=== PATIENT | female | born 1950 | race African-American/Black ===

== ENCOUNTER 2016-11-22 16:25 | Emergency (ER) | payer MEDICARE, MEDICAID ==
[~2016-11-22] VITALS: Ht 170.2 cm; Wt 96.6 kg
[~2016-11-22 16:25] MED LIST: ACET325T9 PO; ALBU8.5H6 IH; AMIT10TA PO; ASPI-482 PO; ASPI325T4 PO; CARB200C PO; CARB200T PO; CLOP75TA PO; CYCL10TA2 PO; DICY10CA53 PO; ERGO500012 PO; FERR325T72 PO; HYDR-2762 PO; ISOS30TA PO; ISOS30TA4 PO; ISOS60TA PO; Isosorbide Mononitrate PO; LEVO150T PO; LEVO25TA4 PO; LORA10TA55 PO; NITR0.4T6 SL; OMEP40CA5 PO; ONDA8TAB15 PO; OXYC10TA32 PO; OXYC1TAB9 PO; OXYC5TAB PO; Oxycodone Hcl/Acetaminophen PO; PITA1TAB2 PO; POLY17PO5 PO; POTA10CA PO; PREG50CA PO; SENN-22 PO; SUCR1ORA PO; SUCR1TAB PO; TOPI100T39 PO; TRAM50TA PO; TRIA1CAP3 PO; UBID100C12 PO; [UNRECOGNIZED DRUG - CODE] IV; levoxyl PO
[2016-11-22 16:34] VITALS: BP 149/71
[2016-11-22] MEDS ORDERED: HYDR115S2 PO (17:03)
[2016-11-22] MEDS ORDERED: PRED-220 PO (17:03)
--- NOTE | 2016-11-22 17:03 | PHYS DOC ---
Past Medical History Past Medical History: CAD, High Cholesterol, Hypertension, Other Additional Past Medical Histor: fabry's disease Past Surgical History: Appendectomy, Cholecystectomy, Hysterectomy, Other Additional Past Surgical Histo: stent placement x3, bowel resection Alcohol Use: None Drug Use: None Adult General Chief Complaint Chief Complaint: Congestion HPI HPI Patient is a 66 year old female, who is a nonsmoker, presents emergency Department today stating that her "bronchitis" is not getting any better. Patient states that her illness began approximately week and half ago. She saw her primary care doctor who placed her on azithromycin. She completed the last dose today and states that she's had no improvement. She denies any fevers or chills. She denies myalgias or arthralgias. Patient denies any history of cardiac or pulmonary disease. 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 She does not take any autoimmune medications. She denies any known contact with similar symptoms. She denies foreign travel, hospitalization within the past 90 days. Review of Systems Review of Systems Constitutional: Denies fever or chills [] Eyes: Denies change in visual acuity, redness, or eye pain [] HENT: Denies nasal congestion or sore throat [] Respiratory: Denies cough or shortness of breath [] Cardiovascular: No additional information not addressed in HPI [] GI: Denies abdominal pain, nausea, vomiting, bloody stools or diarrhea [] : Denies dysuria or hematuria [] Musculoskeletal: Denies back pain or joint pain [] Integument: Denies rash or skin lesions [] Neurologic: Denies headache, focal weakness or sensory changes [] Endocrine: Denies polyuria or polydipsia [] Allergies Allergies Allergies Coded Allergies Type Severity Reaction Last Updated Verified Penicillins Allergy Intermediate Hives 11/10/16 Yes ubidecarenone Allergy Intermediate Itching 11/10/16 Yes NUBIA Inhibitors Adverse Reaction Intermediate cough and migraine 11/10/16 Yes Wpjqtps-Myw-Wnl Reductase Inhibitor Adverse Reaction Intermediate Liver enzymes elevated 11/10/16 Yes clindamycin Adverse Reaction Intermediate c-Diff Diarrhea 11/10/16 Yes diazepam Adverse Reaction Intermediate AMS 11/10/16 Yes duloxetine Adverse Reaction Intermediate Tremors 11/10/16 Yes ezetimibe Adverse Reaction Intermediate Nausea and Vomiting 11/10/16 Yes propranolol Adverse Reaction Intermediate Headaches 11/10/16 Yes Physical Exam Physical Exam Constitutional: Well developed, well nourished, no acute distress, non-toxic appearance. Patient is afebrile. HENT: Normocephalic, atraumatic, bilateral external ears normal, oropharynx moist, no oral exudates, nose normal. [] Eyes: PERRLA, EOMI, conjunctiva normal, no discharge. [] Neck: Normal range of motion, no tenderness, supple, no stridor. [] Cardiovascular:Heart rate regular rhythm, no murmur Lungs & Thorax: There is no respiratory distress respiratory fatigue. There is no posturing or sensory muscle use. Patient is able to speak in full sentences. Patient has central coarse breath sounds at resonates somewhat bilaterally. Peripheral lung sounds are clear to auscultation. Abdomen: Bowel sounds normal, soft, no tenderness, no masses, no pulsatile masses. [] Skin: Warm, dry, no erythema, no rash. [] Back: No tenderness, no CVA tenderness. [] Extremities: No tenderness, no cyanosis, no clubbing, ROM intact, no edema. [] Neurologic: Alert and oriented X 3, normal motor function, normal sensory function, no focal deficits noted. [] Psychologic: Affect normal, judgement normal, mood normal. [] Current Patient Data Vital Signs Vital Signs Date Time Temp Pulse Resp B/P Pulse Ox O2 Delivery O2 Flow Rate FiO2 11/22/16 16:34 97.9 108 18 149/71 96 Room Air 97.9 EKG EKG [] Radiology/Procedures Radiology/Procedures [] Course & Med Decision Making Course & Med Decision Making Pertinent Labs and Imaging studies reviewed. (See chart for details) [] Dragon Disclaimer Dragon Disclaimer This electronic medical record was generated, in whole or in part, using a voice recognition dictation system. Departure Departure Impression: Primary Impression: Bronchitis Disposition: 01 HOME, SELF-CARE Condition: GOOD Referrals: PONCE MAST MD (PCP) Patient Instructions: Acute Bronchitis, [id number] Additional Instructions: 1.You did not require antibiotics. Take the medications as prescribed. Use your inhaler every 6 hours as needed for wheezing and difficulty breathing. 2. Review the discharge instructions provided for self-care and reasons to return to the emergency department. 3. As discussed, do not combine your pain medication with the cough suppressant prescribed here today. A combination of these 2 can suppress your heart and lung function as well as your mental capacity. 4. Contact your primary care doctor's office the morning to schedule follow-up appointment for reevaluation within a week. Scripts Prednisone 10 Mg [id number] Mg PO UD PREDNISONE TAPER #39 TAB Ref 0 Take 3 tablets by mouth twice a day for 3 days, then take 2 tablets by mouth twice a day for 3 days, then take 1 tablet by mouth twice a day for 3 days, then take 1 tablet by mouth daily x 3 days, then stop. Prov:YANNI CLIFFORD 11/22/16 Hydrocodone/Chlorphen Polis (Tussionex Pennkinetic Susp)480 Ml [place].[id number] Ml PO BID COUGH #120 ML Prov:YANNI CLIFFORD 11/22/16 YANNI CLIFFORD Nov 22, 2016 17:03
== END 2016-11-22 17:22 | disposition home or self-care (01) ==
LOC: ER 16:25
DX: J40 Bronchitis, not specified as acute or chronic (principal); I25.10 Atherosclerotic heart disease of native coronary artery without angina pectoris; I10 Essential (primary) hypertension; E78.00 Pure hypercholesterolemia, unspecified; E75.21 Fabry (-Anderson) disease; Z88.0 Allergy status to penicillin; Z88.4 Allergy status to anesthetic agent; Z88.1 Allergy status to other antibiotic agents; Z88.8 Allergy status to other drugs, medicaments and biological substances; Z95.5 Presence of coronary angioplasty implant and graft
CPT/HCPCS: 99283

== ENCOUNTER 2016-12-27 20:54 | Emergency (ER) | payer MEDICARE, MEDICAID ==
[~2016-12-27 20:54] MED LIST changes: +HYDR115S2 PO; +POLY17PO29 PO; -POLY17PO5 PO; -POTA10CA PO; +POTASSIUM CHLO10 MEQ PO; +PRED-220 PO; -SUCR1ORA PO; +SUCR1ORA11 PO
[2016-12-27 21:12] VITALS: BP 220/100
--- NOTE | 2016-12-27 21:24 | PHYS DOC ---
Past Medical History Past Medical History: CAD, High Cholesterol, Hypertension, Other Additional Past Medical Histor: fabry's disease Past Surgical History: Appendectomy, Cholecystectomy, Hysterectomy, Other Additional Past Surgical Histo: stent placement x3, bowel resection Alcohol Use: None Drug Use: None Adult General Chief Complaint Chief Complaint: PAIN CONTROL HPI HPI Patient is a 66 year old female with a history of hypertension, high cholesterol, Fabry's disease who presents today with exacerbation of chronic pain due to Fabry's disease patient states she is in the middle of moving and this exacerbated her pain. Review of Systems Review of Systems Constitutional: Denies fever or chills [] Eyes: Denies change in visual acuity, redness, or eye pain [] HENT: Denies nasal congestion or sore throat [] Respiratory: Denies cough or shortness of breath [] Cardiovascular: No additional information not addressed in HPI [] GI: Denies abdominal pain, nausea, vomiting, bloody stools or diarrhea [] : Denies dysuria or hematuria [] Musculoskeletal: Generalized pain Integument: Denies rash or skin lesions [] Neurologic: Denies headache, focal weakness or sensory changes [] Endocrine: Denies polyuria or polydipsia [] Current Medications Current Medications Current Medications Medications (Trade) Dose Ordered Sig/Priya Start Time Stop Time Status Last Admin Dose Admin Morphine Sulfate 10 mg 1X ONCE 12/27/16 21:15 12/27/16 21:16 UNV Ondansetron HCl (Zofran Odt) 4 mg 1X ONCE 12/27/16 21:30 12/27/16 21:31 Allergies Allergies Allergies Coded Allergies Type Severity Reaction Last Updated Verified Penicillins Allergy Intermediate Hives 12/22/16 Yes ubidecarenone Allergy Intermediate Itching 12/22/16 Yes NUBIA Inhibitors Adverse Reaction Intermediate cough and migraine 12/22/16 Yes Gmlnogf-Xiv-Ygn Reductase Inhibitor Adverse Reaction Intermediate Liver enzymes elevated 12/22/16 Yes clindamycin Adverse Reaction Intermediate c-Diff Diarrhea 12/22/16 Yes diazepam Adverse Reaction Intermediate AMS 12/22/16 Yes duloxetine Adverse Reaction Intermediate Tremors 12/22/16 Yes ezetimibe Adverse Reaction Intermediate Nausea and Vomiting 12/22/16 Yes propranolol Adverse Reaction Intermediate Headaches 12/22/16 Yes Physical Exam Physical Exam Constitutional: Well developed, well nourished, no acute distress, non-toxic appearance. [] HENT: Normocephalic, atraumatic, bilateral external ears normal, oropharynx moist, no oral exudates, nose normal. [] Eyes: PERRLA, EOMI, conjunctiva normal, no discharge. [] Neck: Normal range of motion, no tenderness, supple, no stridor. [] Cardiovascular:Heart rate regular rhythm, no murmur [] Lungs & Thorax: Bilateral breath sounds clear to auscultation [] Abdomen: Bowel sounds normal, soft, no tenderness, no masses, no pulsatile masses. [] Skin: Warm, dry, no erythema, no rash. [] Back: No tenderness, no CVA tenderness. [] Extremities: No tenderness, no cyanosis, no clubbing, ROM intact, no edema. [] Neurologic: Alert and oriented X 3, normal motor function, normal sensory function, no focal deficits noted. [] Psychologic: Affect normal, judgement normal, mood normal. [] Current Patient Data Vital Signs Vital Signs Date Time Temp Pulse Resp B/P Pulse Ox O2 Delivery O2 Flow Rate FiO2 12/27/16 21:12 98.0 75 22 96 Room Air 98.0 EKG EKG [] Radiology/Procedures Radiology/Procedures [] Course & Med Decision Making Course & Med Decision Making Pertinent Labs and Imaging studies reviewed. (See chart for details) Patient is in the ED with exacerbation of Fabry's disease pain. She was given morphine subcutaneous and Zofran. Discharged with instructions to follow-up with her own PCP. Dragon Disclaimer Dragon Disclaimer This electronic medical record was generated, in whole or in part, using a voice recognition dictation system. Departure Departure Impression: Primary Impression: Fabry disease Additional Impression: Chronic pain Disposition: 01 HOME, SELF-CARE Condition: STABLE Referrals: PONCE MAST MD (PCP) Follow-up with your doctor in a week Patient Instructions: Musculoskeletal Pain Additional Instructions: You were seen for exacerbation of Fabry's disease pain. Please follow-up with your own doctor in one week or sooner if need be. Problem Qualifiers Additional Impression: Chronic pain Chronic pain type: chronic pain syndrome Qualified Code: G89.4 - Chronic pain syndrome JUAN GRULLON VICENTE December 27, 2016 21:24
[2016-12-27] MEDS ORDERED: ONDANSETRON ODT 4 MG TAB.RAPDIS. PO ONE (21:30)
[2016-12-27] MEDS ORDERED: MORPHINE SULFATE 10 MG/ML VIAL. SQ ONE (21:30)
[2016-12-27] MEDS ORDERED: MORPHINE SULFATE 10 MG/ML VIAL. IM ONE (21:30)
== END 2016-12-27 21:39 | disposition home or self-care (01) ==
LOC: ER 20:54
DX: E75.21 Fabry (-Anderson) disease (principal); G89.29 Other chronic pain; I10 Essential (primary) hypertension; E78.00 Pure hypercholesterolemia, unspecified; I25.10 Atherosclerotic heart disease of native coronary artery without angina pectoris; Z95.5 Presence of coronary angioplasty implant and graft; Z88.1 Allergy status to other antibiotic agents; Z88.8 Allergy status to other drugs, medicaments and biological substances; Z88.0 Allergy status to penicillin
CPT/HCPCS: 96372; 99283; J2270; Q0162

== ENCOUNTER 2017-03-24 13:47 | Emergency (ER) | payer MEDICARE ==
[~2017-03-24] VITALS: Ht 170.2 cm; Wt 96.6 kg
[~2017-03-24 13:47] MED LIST changes: -ASPI325T4 PO; +ASPI325T8 PO; -ERGO500012 PO; +ERGO500027 PO; +NITR0.4T22 SL; -NITR0.4T6 SL; -OXYC10TA32 PO; +OXYC10TA45 PO; -TOPI100T39 PO; +TOPI100T42 PO; -UBID100C12 PO; +UBID100C40 PO
[2017-03-24 13:52] VITALS: BP 138/65
--- NOTE | 2017-03-24 14:17 | PHYS DOC ---
Past Medical History Past Medical History: CAD, High Cholesterol, Hypertension, Other Additional Past Medical Histor: fabry's disease Past Surgical History: Angioplasty, Appendectomy, Cholecystectomy, Colectomy, Hysterectomy Additional Past Surgical Histo: stent placement x3, bowel resection Alcohol Use: None Drug Use: None Adult General Chief Complaint Chief Complaint: PAIN CONTROL HPI HPI Patient is a 66 year old female presents to the emergency department stating she had Fabrys and is having a crisis. VS are within normal limits. Patient states, I have to have morphine 10 cc injection this is the only thing that breaks the cycle." Patient continues to state she has ER morphine 15 mg at home in which she has taken last night. She states she can take the medication every 12 hour but did not take the medication today as she has to work. She did however take oxycodone 10 this morning prior to going to work. Patient states she was at work when she noted that her lips felt numb as it does when she has her crisis. Patient states, " I always get morphine injections because my morphine at home does not take care of the pain when it gets this bad." Review of Systems Review of Systems Constitutional: Denies fever or chills. C/o generalized body pain Eyes: Denies change in visual acuity, redness, or eye pain [] HENT: Denies nasal congestion or sore throat [] Respiratory: Denies cough or shortness of breath [] Cardiovascular: No additional information not addressed in HPI [] GI: Denies abdominal pain, nausea, vomiting, bloody stools or diarrhea [] : Denies dysuria or hematuria [] Musculoskeletal: Denies back pain or joint pain [] Integument: Denies rash or skin lesions [] Neurologic: Denies headache, focal weakness or sensory changes [] Endocrine: Denies polyuria or polydipsia [] Allergies Allergies Allergies Coded Allergies Type Severity Reaction Last Updated Verified Penicillins Allergy Intermediate Hives 03/20/17 Yes ubidecarenone Allergy Intermediate Itching 03/20/17 Yes NUBIA Inhibitors Adverse Reaction Intermediate cough and migraine 03/20/17 Yes Bmlrasq-Jbw-Ptn Reductase Inhibitor Adverse Reaction Intermediate Liver enzymes elevated 03/20/17 Yes clindamycin Adverse Reaction Intermediate c-Diff Diarrhea 03/20/17 Yes diazepam Adverse Reaction Intermediate AMS 03/20/17 Yes duloxetine Adverse Reaction Intermediate Tremors 03/20/17 Yes ezetimibe Adverse Reaction Intermediate Nausea and Vomiting 03/20/17 Yes propranolol Adverse Reaction Intermediate Headaches 03/20/17 Yes Physical Exam Physical Exam Constitutional: Well developed, well nourished, no acute distress, non-toxic appearance. [] HENT: Normocephalic, atraumatic, bilateral external ears normal, oropharynx moist, no oral exudates, nose normal. [] Eyes: PERRLA, EOMI, conjunctiva normal, no discharge. [] Neck: Normal range of motion, no tenderness, supple, no stridor. [] Cardiovascular: Patient pink in color Lungs & Thorax: no respiratory distress noted Skin: Warm, dry, no erythema, no rash. [] Back: No tenderness] Extremities: No tenderness, no cyanosis, no clubbing, ROM intact, no edema. [] Neurologic: Alert and oriented X 3, normal motor function, normal sensory function, no focal deficits noted. [] Psychologic: Affect normal, judgement normal, mood normal. [] Current Patient Data Vital Signs Vital Signs Date Time Temp Pulse Resp B/P (MAP) Pulse Ox O2 Delivery O2 Flow Rate FiO2 03/24/17 13:52 97.7 63 16 96 Room Air 97.7 EKG EKG [] Radiology/Procedures Radiology/Procedures [] Course & Med Decision Making Course & Med Decision Making Pertinent Labs and Imaging studies reviewed. (See chart for details) Once again patients VS normal. Patient became upset when she was instructed that she would need a ride here before she would be provided with morphine. Patient became argumentative stating that she has always received the injection and then would call for a ride. 1416 Patient has made multiple calls and is having difficulty finding someone to come pick her up. 1516 Patients ride has arrived here. Medications have been ordered, morphine 10 mg SC and Zofran 4 mg ODT. Patient was provided with discharge instructions. Recommended not taking her home medications for 6 hours since she received the injection here in the emergency department. Signs and symptoms to return to the emergency department has been provided. Patient will be discharged home in stable condition. [] Dragon Disclaimer Dragon Disclaimer This electronic medical record was generated, in whole or in part, using a voice recognition dictation system. Departure Departure Impression: Primary Impression: Chronic pain Additional Impression: Drug-seeking behavior Disposition: HOME, SELF-CARE Condition: STABLE Referrals: PONCE MAST MD (PCP) Patient Instructions: Chronic Pain Management-Brief Additional Instructions: Activity as tolerated Take your home medication as prescribed. To help prevent increase pain. You may take your morphine ER or your oxycodone in 6 hours if needed for pain No driving while taking Morphine ER or Oxycodone as these cause drowsiness Followup with your primary care provider for further pain management Return to emergency department as needed for signs and symptoms that become worse. Problem Qualifiers LYNETTE STAPLES KILN TENDER Mar 24, 2017 14:17
[2017-03-24] MEDS ORDERED: MORPHINE SULFATE 10 MG/ML VIAL. SQ ONE (15:15)
[2017-03-24] MEDS ORDERED: ONDANSETRON ODT 4 MG TAB.RAPDIS. PO ONE (15:15)
== END 2017-03-24 15:34 | disposition home or self-care (01) ==
LOC: ER 13:47
DX: G89.29 Other chronic pain (principal); Z76.5 Malingerer [conscious simulation]; R20.0 Anesthesia of skin; E78.00 Pure hypercholesterolemia, unspecified; I10 Essential (primary) hypertension; I25.10 Atherosclerotic heart disease of native coronary artery without angina pectoris; Z88.0 Allergy status to penicillin; Z88.1 Allergy status to other antibiotic agents; Z88.8 Allergy status to other drugs, medicaments and biological substances
CPT/HCPCS: 96372; 99283; J2270; Q0162

== ENCOUNTER → 2017-06-19 | Outpatient (CLI) | payer MEDICARE ==
[2017-06-08 12:52] VITALS: BP 150/57
[~2017-06-19] MED LIST changes: -OXYC5TAB PO; +OXYC5TAB95 PO
--- NOTE | 2017-06-20 15:58 | KCIC ---
DATE: 06/19/2017 EXAM: MAMMO GAUTAM SCREENING BILATERAL HISTORY: Asymptomatic screening mammogram COMPARISON: Prior mammograms from 04/12/2016 This study was interpreted with the benefit of Computerized Aided Detection (CAD). The breast parenchyma is primarily fatty replaced. Breast parenchyma level density A. FINDINGS: Bilateral CC and MLO views of the breasts were performed. Bilateral breast tomosynthesis was performed in CC and MLO projections. Right breast: There are no suspicious microcalcifications, masses or areas of architectural distortion. Left breast: There are no suspicious microcalcifications, masses or areas of architectural distortion. Findings are stable from prior mammogram. IMPRESSION: Negative bilateral mammogram. Recommend annual screening mammography. BI-RADS CATEGORY: 1 NEGATIVE RECOMMENDED FOLLOW-UP: 12M 12 MONTH FOLLOW-UP PQRS compliance statement: Patient information was entered into a reminder system with a target due date 06/19/2018 for the next mammogram. Mammography is a sensitive method for finding small breast cancers, but it does not detect them all and is not a substitute for careful clinical examination. A negative mammogram does not negate a clinically suspicious finding and should not result in delay in biopsying a clinically suspicious abnormality. "Our facility is accredited by the [employer] Mammography Program."
== END | disposition home or self-care (01) ==
LOC: KCIC MAMMO 12:34
PROVIDERS: ATTEND Internal Medicine
DX: Z12.31 Encounter for screening mammogram for malignant neoplasm of breast (principal)
CPT/HCPCS: 77063; G0202; 77067

== ENCOUNTER 2017-07-13 12:27 | Emergency (ER) | payer MEDICARE ==
[~2017-07-13] VITALS: Ht 170.2 cm; Wt 90.7 kg
[2017-07-13 12:50] VITALS: BP 140/70
[2017-07-13] MEDS ORDERED: MORPHINE SULFATE 10 MG/ML VIAL. SQ ONE (13:45)
--- NOTE | 2017-07-13 13:56 | PHYS DOC ---
Past Medical History Past Medical History: CAD, High Cholesterol, Hypertension, Other Additional Past Medical Histor: fabry's disease Past Surgical History: Angioplasty, Appendectomy, Cholecystectomy, Colectomy, Hysterectomy Additional Past Surgical Histo: stent placement x3, bowel resection Alcohol Use: None Drug Use: None Adult General Chief Complaint Chief Complaint: PAIN CONTROL HPI HPI This patient is a pleasant 67-year-old female with history of Fabry's disease who is receiving intermittent enzyme replacement therapy presents with her typical pain crisis. Patient been dealing with pain in her thighs and her elbows bilaterally for last week she returned use her medications prescribed at home by Dr. Rendon with limited success. She comes in today because typically when she begins having tingling to her face she knows that the symptoms will be worse and the patient will not be controlled without worse significant medications. Patient has no new symptoms, no fevers no chills no nausea no vomiting no chest pain or shortness of breath or other symptoms chest pain. There is no rash no change in skin color no swelling no trauma. Patient is typical for patient a 10 of 10 at this time Review of Systems Review of Systems Constitutional: Denies fever or chills [] Eyes: Denies change in visual acuity, redness, or eye pain [] HENT: Denies nasal congestion or sore throat [] Respiratory: Denies cough or shortness of breath [] Cardiovascular: No additional information not addressed in HPI [] GI: Denies abdominal pain, nausea, vomiting, bloody stools or diarrhea [] : Denies dysuria or hematuria [] Musculoskeletal: He has chronic joint lower leg arm and thigh pain typical for patient Integument: Denies rash or skin lesions [] Neurologic: Denies headache, focal weakness or sensory changes [] All other systems were reviewed and found to be within normal limits, except as documented in this note. Current Medications Current Medications Current Medications Medications (Trade) Dose Ordered Sig/Priya Start Time Stop Time Status Last Admin Dose Admin Morphine Sulfate 10 mg 1X ONCE 07/13/17 13:45 07/13/17 13:46 DC Allergies Allergies Allergies Coded Allergies Type Severity Reaction Last Updated Verified Penicillins Allergy Intermediate Hives 07/06/17 Yes ubidecarenone Allergy Intermediate Itching 07/06/17 Yes NUBIA Inhibitors Adverse Reaction Intermediate cough and migraine 07/06/17 Yes Bfzgklr-Lvs-Lri Reductase Inhibitor Adverse Reaction Intermediate Liver enzymes elevated 07/06/17 Yes clindamycin Adverse Reaction Intermediate c-Diff Diarrhea 07/06/17 Yes diazepam Adverse Reaction Intermediate AMS 07/06/17 Yes duloxetine Adverse Reaction Intermediate Tremors 07/06/17 Yes ezetimibe Adverse Reaction Intermediate Nausea and Vomiting 07/06/17 Yes propranolol Adverse Reaction Intermediate Headaches 07/06/17 Yes Physical Exam Physical Exam Vital signs recorded the chart without a blood pressure within normal limits Constitutional: Well developed, well nourished, no acute distress, non-toxic appearance. [] Neck: Normal range of motion, no tenderness, supple, Cardiovascular:Heart rate regular rhythm, no murmur [] Lungs & Thorax: Bilateral breath sounds clear to auscultation [] Skin: Warm, dry, no erythema, no rash. [] Back: No tenderness, no CVA tenderness. [] Extremities: She has extensive tenderness along the thighs bilaterally and rales bilaterally. No change in skin color no warmth or swelling. This is typical for patient nothing new Neurologic: Alert and oriented X 3, normal motor function, normal sensory function, no focal deficits noted. [] Psychologic: Affect normal, judgement normal, mood normal. [] Current Patient Data Vital Signs Vital Signs Date Time Temp Pulse Resp B/P (MAP) Pulse Ox O2 Delivery O2 Flow Rate FiO2 07/13/17 12:50 97.8 66 16 96 Room Air 97.8 EKG EKG [] Radiology/Procedures Radiology/Procedures [] Course & Med Decision Making Course & Med Decision Making Pertinent Labs and Imaging studies reviewed. (See chart for details) []Farm Service Consultant note: Dr. Mitesh Collins Farm Service Consultant called at of the service initially paged service at 1:45 PM Consult called back at 1:45 PM Discussed the case I presented and they agreed with treatment plan and disposition. He understands this patient has a long-standing history of her brace disease which is painful nature any doctors for her complaint and states that she does need her subcutaneous morphine to treat her symptoms. Dragon Disclaimer Dragon Disclaimer This electronic medical record was generated, in whole or in part, using a voice recognition dictation system. Departure Departure Impression: Primary Impression: Fabry disease Additional Impression: Exacerbation of chronic back pain Disposition: 01 HOME, SELF-CARE Condition: STABLE Referrals: MITESH COLLINS MD (PCP) Patient Instructions: Chronic Pain Management Additional Instructions: discharge: I've spoken with the patient and/or caregivers. I've explained the patient's condition, diagnosis and treatment plan based on information available to me at this time. I've answered the patient's and/or caregivers questions and addressed any concerns. The patient and/or caregivers have a good understanding the patient's diagnosis, condition and treatment plan as can be expected at this point. Vital signs have been stabilized. The patient's condition is stable for discharge from the emergency department. The patient will pursue further outpatient evaluation with her primary care provider or other designated consulting physician as outlined in the discharge instructions. Patient and/or caregivers are agreeable to this plan of care and follow-up instructions have been explained in detail. The patient and/or caregivers have received these instructions in written format and expressed understanding of these discharge instructions. The patient and her caregivers are aware that if any significant change in condition or worsening of symptoms should prompt him to immediately return to this of the closest emergency department. If an emergent department is not readily available I would encourage him to call 911. Problem Qualifiers ALISA PEDRO MD Jul 13, 2017 13:56
[2017-07-13] MEDS ORDERED: ONDANSETRON ODT 4 MG TAB.RAPDIS. PO ONE (14:00)
== END 2017-07-13 14:11 | disposition home or self-care (01) ==
LOC: ER 12:27
DX: E75.21 Fabry (-Anderson) disease (principal); G89.29 Other chronic pain; I10 Essential (primary) hypertension; E78.00 Pure hypercholesterolemia, unspecified; I25.10 Atherosclerotic heart disease of native coronary artery without angina pectoris; Z90.710 Acquired absence of both cervix and uterus; Z90.49 Acquired absence of other specified parts of digestive tract; Z95.5 Presence of coronary angioplasty implant and graft; Z88.0 Allergy status to penicillin; Z88.1 Allergy status to other antibiotic agents; Z91.041 Radiographic dye allergy status; Z88.8 Allergy status to other drugs, medicaments and biological substances
CPT/HCPCS: 96372; 99283; J2270; Q0162

== ENCOUNTER → 2017-10-13 | Outpatient (CLI) | payer MEDICARE | END | disposition home or self-care (01) | LOC: ECHO 13:12 | DX: I08.1 Rheumatic disorders of both mitral and tricuspid valves (principal); I25.10 Atherosclerotic heart disease of native coronary artery without angina pectoris | CPT/HCPCS: 93306; 93925 ==

== ENCOUNTER 2017-11-17 06:39 | Outpatient (CLI) | payer MEDICARE ==
[2017-11-17 07:05] LABS: HEMATOCRIT 31.7 % (36.0-47.0); HEMOGLOBIN 9.8 g/dL (12.0-15.5); MEAN CORPUSCULAR HEMOGLOBIN 22 pg (25-35); MEAN CORPUSCULAR HGB CONC 31 g/dL (31-37); MEAN CORPUSCULAR VOLUME 70 fL (79-100); PLATELET COUNT 255 x10^3/uL (140-400); RED BLOOD COUNT 4.52 x10^6/uL (3.50-5.40); RED CELL DISTRIBUTION WIDTH 18.3 % (11.5-14.5); WHITE BLOOD COUNT 7.1 x10^3/uL (4.0-11.0)
[2017-11-17] MEDS ORDERED: IODIXANOL 320 MG/ML 100 ML VIAL. (07:08)
[2017-11-17] MEDS ORDERED: LIDOCAINE 2% 20 ML VIAL. (07:08)
[2017-11-17 07:14] LABS: PROTHROMBIN TIME PATIENT 12.3 SEC (11.7-14.0)
[2017-11-17 07:19] LABS: ANION GAP 12 (6-14); BLOOD UREA NITROGEN 21 mg/dL (7-20); CALCIUM 9.3 mg/dL (8.5-10.1); CARBON DIOXIDE 25 mmol/L (21-32); CHLORIDE 104 mmol/L (98-107); GFR 67.3; GLUCOSE 148 mg/dL (70-99); POTASSIUM 3.4 mmol/L (3.5-5.1); SODIUM 141 mmol/L (136-145)
[2017-11-17] MEDS ORDERED: MIDAZOLAM HCL/PF 5 MG/5 ML VIAL. (07:58)
[2017-11-17] MEDS ORDERED: fentaNYL PF VIAL 100 MCG/2 ML VIAL (07:58)
[2017-11-17] MEDS: LIDOCAINE 2% 20 ML VIAL. IJ (09:10)
[2017-11-17] MEDS: MIDAZOLAM HCL/PF 5 MG/5 ML VIAL. IV (09:11)
[2017-11-17] MEDS: fentaNYL PF VIAL 100 MCG/2 ML VIAL IV (09:11)
[2017-11-17] MEDS: IODIXANOL 320 MG/ML 100 ML VIAL. IART (09:12)
[2017-11-17] MEDS ORDERED: IV 1/2 NORMAL SALINE 1,000 ML IV (09:16)
[2017-11-17] MEDS ORDERED: LACTULOSE 20 GM/30 ML SOLUTION. PO (09:30)
[2017-11-17] MEDS ORDERED: NITROGLYCERIN SUBLINGUAL 0.4 MG BOTTLE OF 25. SL (09:30)
[2017-11-17] MEDS ORDERED: BISACODYL 10 MG SUPP.RECT. PR (09:30)
[2017-11-17] MEDS ORDERED: MAGNESIUM HYDROXIDE 2,400 MG/30 ML ORAL.SUSP. PO (09:30)
[2017-11-17] MEDS ORDERED: ACETAMINOPHEN 325 MG TABLET. PO (09:30)
[2017-11-17] MEDS ORDERED: CILOSTAZOL 50 MG TABLET. PO (21:00)
== END 2017-11-17 11:30 | disposition home or self-care (01) ==
LOC: CCL 06:39
DX: I70.213 Atherosclerosis of native arteries of extremities with intermittent claudication, bilateral legs (principal); I10 Essential (primary) hypertension; I25.10 Atherosclerotic heart disease of native coronary artery without angina pectoris; E78.00 Pure hypercholesterolemia, unspecified; J45.909 Unspecified asthma, uncomplicated; K21.9 Gastro-esophageal reflux disease without esophagitis; E03.9 Hypothyroidism, unspecified; F32.89 Other specified depressive episodes; Z90.49 Acquired absence of other specified parts of digestive tract; Z90.710 Acquired absence of both cervix and uterus; Z79.899 Other long term (current) drug therapy; Z95.5 Presence of coronary angioplasty implant and graft; Z79.82 Long term (current) use of aspirin; Z79.891 Long term (current) use of opiate analgesic; Z98.890 Other specified postprocedural states
CPT/HCPCS: 36247; 36415; 75630; 75716; 80048; 85027; 85610; 99152; 99153; C1769; C1771; C1892; G0269; J1644; J2250; J3010

== ENCOUNTER → 2017-12-26 | Day surgery (SDC) | payer MEDICARE ==
[~2017-12-26] MED LIST changes: -ACET325T9 PO; -ALBU8.5H6 IH; -AMIT10TA PO; -ASPI-482 PO; -ASPI325T8 PO; -CARB200C PO; -CARB200T PO; -CLOP75TA PO; -CYCL10TA2 PO; -DICY10CA53 PO; -ERGO500027 PO; -FERR325T72 PO; -HYDR-2762 PO; -HYDR115S2 PO; -ISOS30TA PO; -ISOS30TA4 PO; -ISOS60TA PO; -Isosorbide Mononitrate PO; -LEVO150T PO; -LEVO25TA4 PO; +LIDOCAINE 1% PF 2 ML VIAL. ID; +LIDOCAINE 2% PF Vial for OR 5 ML VIAL.; -LORA10TA55 PO; +MORPHINE SULFATE 4 MG/ML DISP.SYRIN. IV; -NITR0.4T22 SL; -OMEP40CA5 PO; -ONDA8TAB15 PO; +ONDANSETRON PF 4 MG/2 ML VIAL. IV; -OXYC10TA45 PO; -OXYC1TAB9 PO; -OXYC5TAB95 PO; -Oxycodone Hcl/Acetaminophen PO; -PITA1TAB2 PO; -POLY17PO29 PO; -POTASSIUM CHLO10 MEQ PO; -PRED-220 PO; -PREG50CA PO; +PROCHLORPERAZINE 10 MG/2 ML VIAL. IV; +PROPOFOL 20 ML IV; +PROPOFOL 40 ML IV; -SENN-22 PO; -SUCR1ORA11 PO; -SUCR1TAB PO; -TOPI100T42 PO; -TRAM50TA PO; -TRIA1CAP3 PO; -UBID100C40 PO; -[UNRECOGNIZED DRUG - CODE] IV; +fentaNYL PF VIAL 100 MCG/2 ML VIAL IV; -levoxyl PO
[2017-12-26] MEDS: IV RINGERS,LACTATED 1000ML 1,000 ML IV (08:23)
== END ==
LOC: ENDOS 07:54
DX: Z12.11 Encounter for screening for malignant neoplasm of colon (principal); K21.0 Gastro-esophageal reflux disease with esophagitis; K22.8 Other specified diseases of esophagus; D64.9 Anemia, unspecified; E03.9 Hypothyroidism, unspecified; I73.9 Peripheral vascular disease, unspecified; E66.9 Obesity, unspecified; E78.00 Pure hypercholesterolemia, unspecified; I10 Essential (primary) hypertension; I25.10 Atherosclerotic heart disease of native coronary artery without angina pectoris; M19.90 Unspecified osteoarthritis, unspecified site; Z90.49 Acquired absence of other specified parts of digestive tract; Z98.51 Tubal ligation status; Z90.710 Acquired absence of both cervix and uterus; Z98.890 Other specified postprocedural states; Z87.19 Personal history of other diseases of the digestive system; Z79.899 Other long term (current) drug therapy; Z79.82 Long term (current) use of aspirin
CPT/HCPCS: 43239; 45378; 88305; G0105; J2704

== ENCOUNTER 2018-03-26 16:41 | Emergency (ER) | payer MEDICARE ==
[2018-03-26] MEDS: MORPHINE SULFATE 10 MG/ML VIAL. SQ (17:29)
[2018-03-26] MEDS: ONDANSETRON ODT 4 MG TAB.RAPDIS. PO (17:37)
== END 2018-03-26 17:43 | disposition home or self-care (01) ==
LOC: ER 16:41
DX: E75.21 Fabry (-Anderson) disease (principal); G89.29 Other chronic pain; I10 Essential (primary) hypertension; E78.00 Pure hypercholesterolemia, unspecified; I25.10 Atherosclerotic heart disease of native coronary artery without angina pectoris; Z94.9 Transplanted organ and tissue status, unspecified; Z90.710 Acquired absence of both cervix and uterus; Z90.89 Acquired absence of other organs; Z87.891 Personal history of nicotine dependence; Z88.1 Allergy status to other antibiotic agents; Z88.0 Allergy status to penicillin; Z88.8 Allergy status to other drugs, medicaments and biological substances
CPT/HCPCS: 96372; 99283; J2270; Q0162

== ENCOUNTER 2018-05-19 17:16 | Emergency (ER) | payer MEDICARE ==
[~2018-05-19] VITALS: Ht 175.3 cm; Wt 96.6 kg
[~2018-05-19 17:16] MED LIST changes: +ACET325T9 PO; +ALBU8.5H6 IH; +AMIT10TA PO; +AMLO5TAB7 PO; +ASPI-482 PO; +ASPI325T8 PO; +CARB200C PO; +CARB200T PO; +CILO100T PO; +CLOP75TA PO; +CYCL10TA2 PO; +DICY10CA53 PO; +ERGO500027 PO; +FERR325T72 PO; +HYDR-2762 PO; +HYDR-2766 PO; +HYDR115S2 PO; +ISOS30TA PO; +ISOS30TA4 PO; +ISOS60TA PO; +Isosorbide Mononitrate PO; +LEVO150T PO; +LEVO25TA4 PO; -LIDOCAINE 1% PF 2 ML VIAL. ID; -LIDOCAINE 2% PF Vial for OR 5 ML VIAL.; +LORA10TA55 PO; -MORPHINE SULFATE 4 MG/ML DISP.SYRIN. IV; +NITR0.4T22 SL; +OMEP40CA5 PO; +ONDA8TAB15 PO; -ONDANSETRON PF 4 MG/2 ML VIAL. IV; +OXYC-411 PO; +OXYC10TA45 PO; +OXYC5TAB95 PO; +Oxycodone Hcl/Acetaminophen PO; +PITA1TAB2 PO; +POLY17PO29 PO; +POTA10TA12 PO; +POTA20TA82 PO; +PRED-220 PO; +PREG50CA PO; -PROCHLORPERAZINE 10 MG/2 ML VIAL. IV; -PROPOFOL 20 ML IV; -PROPOFOL 40 ML IV; +SENN-22 PO; +SUCR1ORA11 PO; +SUCR1TAB PO; +TIZA4TAB PO; +TOPI100T42 PO; +TRAM50TA PO; +TRIA1CAP3 PO; +UBID100C40 PO; +[UNRECOGNIZED DRUG - CODE] IV; -fentaNYL PF VIAL 100 MCG/2 ML VIAL IV; +levoxyl PO
[2018-05-19 17:22] VITALS: BP 148/99
[2018-05-19] MEDS ORDERED: ONDANSETRON ODT 4 MG TAB.RAPDIS. PO ONE (17:30)
[2018-05-19] MEDS ORDERED: MORPHINE SULFATE 10 MG/ML VIAL. SQ ONE (17:30)
--- NOTE | 2018-05-19 17:33 | PHYS DOC ---
Past Medical History Past Medical History: CAD, High Cholesterol, Hypertension, Other Additional Past Medical Histor: fabry's disease Past Surgical History: Angioplasty, Appendectomy, Cholecystectomy, Colectomy, Hysterectomy Additional Past Surgical Histo: stent placement x3, bowel resection Alcohol Use: None Drug Use: None Adult General Chief Complaint Chief Complaint: OTHER COMPLAINTS HPI HPI Patient is a 68 year old female who presents with a Fabry pain crisis. The patient was just at a conference in [place]. She thinks that she overdid it. She came back in town yesterday and spent all day in bed and took her pain medications. She has tried increasing her fluids. She states that today her pain has continued to worsen. When she gets into a crisis like this she needs morphine subcutaneous and Zofran to alleviate her symptoms. She states that she is not having any other irregular symptoms other than her normal pain crisis. Review of Systems Review of Systems Constitutional: Denies fever or chills [] Eyes: Denies change in visual acuity, redness, or eye pain [] HENT: Denies nasal congestion or sore throat [] Respiratory: Denies cough or shortness of breath [] Cardiovascular: No additional information not addressed in HPI [] GI: Denies abdominal pain, nausea, vomiting, bloody stools or diarrhea [] : Denies dysuria or hematuria [] Musculoskeletal: See history of present illness Integument: Denies rash or skin lesions [] Neurologic: Denies headache, focal weakness or sensory changes [] Endocrine: Denies polyuria or polydipsia [] All other systems were reviewed and found to be within normal limits, except as documented in this note. Current Medications Current Medications Current Medications Medications (Trade) Dose Ordered Sig/Priya Start Time Stop Time Status Last Admin Dose Admin Morphine Sulfate (Morphine Sulfate) 10 mg 1X ONCE 05/19/18 17:30 05/19/18 17:31 UNV Ondansetron HCl (Zofran Odt) 4 mg 1X ONCE 05/19/18 17:30 05/19/18 17:31 UNV Allergies Allergies Allergies Coded Allergies Type Severity Reaction Last Updated Verified Penicillins Allergy Intermediate Hives 05/10/18 Yes enalapril Allergy Intermediate cough 05/10/18 Yes fentanyl Allergy Intermediate headaches 05/10/18 Yes lisinopril Allergy Intermediate 05/10/18 Yes pravastatin Allergy Intermediate 05/10/18 Yes ubidecarenone Allergy Intermediate Itching 05/10/18 Yes NUBIA Inhibitors Adverse Reaction Intermediate cough and migraine 05/10/18 Yes Irsqwkp-Eyj-Mfz Reductase Inhibitor Adverse Reaction Intermediate Liver enzymes elevated 05/10/18 Yes clindamycin Adverse Reaction Intermediate c-Diff Diarrhea 05/10/18 Yes diazepam Adverse Reaction Intermediate AMS 05/10/18 Yes duloxetine Adverse Reaction Intermediate Tremors 05/10/18 Yes ezetimibe Adverse Reaction Intermediate Nausea and Vomiting 05/10/18 Yes propranolol Adverse Reaction Intermediate Headaches 05/10/18 Yes Physical Exam Physical Exam Constitutional: Well developed, well nourished, no acute distress, non-toxic appearance. [] HENT: Normocephalic, atraumatic, bilateral external ears normal, oropharynx moist, no oral exudates, nose normal. [] Eyes: PERRLA, EOMI, conjunctiva normal, no discharge. [] Neck: Normal range of motion, no tenderness, supple, no stridor. [] Cardiovascular:Heart rate regular rhythm, no murmur [] Lungs & Thorax: Bilateral breath sounds clear to auscultation [] Abdomen: Bowel sounds normal, soft, no tenderness, no masses, no pulsatile masses. [] Skin: Warm, dry, no erythema, no rash. [] Back: No tenderness, no CVA tenderness. [] Extremities: Generalized tenderness, no cyanosis, no clubbing, ROM intact, no edema. [] Neurologic: Alert and oriented X 3, normal motor function, normal sensory function, no focal deficits noted. [] Psychologic: Affect normal, judgement normal, mood normal. [] EKG EKG [] Radiology/Procedures Radiology/Procedures [] Course & Med Decision Making Course & Med Decision Making Pertinent Labs and Imaging studies reviewed. (See chart for details) []The patient is receiving 10 of morphine subcutaneous as well as 4 mg of Zofran in the emergency department. She will follow up with her primary care for further evaluation. She is in agreement with this plan. Dragon Disclaimer Dragon Disclaimer This electronic medical record was generated, in whole or in part, using a voice recognition dictation system. Departure Departure Impression: Primary Impression: Fabry disease Additional Impression: Pain Disposition: 01 HOME, SELF-CARE Condition: STABLE Referrals: PONCE MAST MD (PCP) Patient Instructions: Chronic Pain Additional Instructions: Increase your fluids and rest. Follow-up with your primary care provider for further evaluation of your symptoms. If worsening return to the emergency department. Do not drive or operate heavy machinery with the medications you were given in the emergency room today for at least 12 hours. Problem Qualifiers MEGA MUNSON APRN May 19, 2018 17:33
[2018-05-24] MEDS ORDERED: CHOL10002 PO (11:05)
[2018-05-24] MEDS ORDERED: LEVO137T2 PO (11:05)
[2018-05-24] MEDS ORDERED: TIZA4TAB PO (11:05)
[2018-05-24] MEDS ORDERED: ISOS30TA4 PO (11:05)
[2018-05-24] MEDS ORDERED: POTA20TA4 PO (11:05)
== END 2018-05-19 18:13 | disposition home or self-care (01) ==
LOC: ER 17:16
DX: E75.21 Fabry (-Anderson) disease (principal); E78.00 Pure hypercholesterolemia, unspecified; I25.10 Atherosclerotic heart disease of native coronary artery without angina pectoris; I10 Essential (primary) hypertension; Z95.5 Presence of coronary angioplasty implant and graft; Z88.0 Allergy status to penicillin; Z88.4 Allergy status to anesthetic agent; Z88.1 Allergy status to other antibiotic agents; Z88.8 Allergy status to other drugs, medicaments and biological substances; Z88.6 Allergy status to analgesic agent; Z91.041 Radiographic dye allergy status
CPT/HCPCS: 96372; 99283; J2270; Q0162

== ENCOUNTER 2018-05-22 17:06 | Inpatient (IN) | payer MEDICARE ==
[~2018-05-22] VITALS: Ht 167.6 cm; Wt 104.0 kg
--- NOTE | 2018-05-22 17:27 | EKG ---
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
--- NOTE | 2018-05-22 17:32 | PHYS DOC ---
Past Medical History Past Medical History: CAD, High Cholesterol, Hypertension, Other Additional Past Medical Histor: fabry's disease Past Surgical History: Angioplasty, Appendectomy, Cholecystectomy, Colectomy, Hysterectomy Additional Past Surgical Histo: stent placement x3, bowel resection Alcohol Use: None Drug Use: None Adult General Chief Complaint Chief Complaint: CHEST PAIN HPI HPI Patient is a 68 year old female who presents with chest pain. The patient describes a chest heaviness that started earlier today while she was driving. The symptoms persisted throughout the day. The patient had recent travel to a conference in [place]. There is no radiation of symptoms to the jaw. She did not feel short of breath or have diaphoresis or palpitations. The patient does have a prior history of myocardial infarction and has cardiac stents in the past. She is followed by cardiology at this hospital. Today, she states the heaviness in her chest feels identical to prior cardiac related pain. This patient has a known history of Fabry's disease. This disease does cause her some intermittent flares of pain. Those symptoms however are different. She states there are diffuse pain and some numbness tingling symptoms in the face. Her heaviness in her chest today does not seem typical for her Fabry symptoms. Review of Systems Review of Systems Constitutional: Denies fever Eyes: Denies change in visual acuity HENT: Denies nasal congestion Respiratory: Denies cough or SOB Cardiovascular: With chest pain, no palpitations GI: Denies abdominal pain : Denies dysuria Musculoskeletal: Denies back pain Integument: Denies rash or skin lesions Neurologic: Denies headache Endocrine: Denies polyuria All other systems were reviewed and found to be within normal limits, except as documented in this note. Current Medications Current Medications Current Medications Medications (Trade) Dose Ordered Sig/Priya Start Time Stop Time Status Last Admin Dose Admin Acetaminophen (Tylenol) 650 mg PRN Q6HRS PRN 05/22/18 20:00 05/24/18 13:24 DC Aspirin (Nara Aspirin) 325 mg 1X ONCE 05/22/18 18:00 05/22/18 18:01 DC 05/22/18 18:17 325 MG Info (CONTRAST GIVEN -- Rx MONITORING) 1 each PRN DAILY PRN 05/22/18 19:30 05/23/18 13:09 DC Iohexol (Omnipaque 300 Mg/ml) 100 ml 1X ONCE 05/22/18 19:30 05/22/18 19:31 DC 05/22/18 19:45 100 ML Morphine Sulfate (Morphine Sulfate) 10 mg 1X ONCE 05/22/18 18:00 05/22/18 18:01 DC 05/22/18 18:20 10 MG Nitroglycerin (Nitrostat) 0.4 mg PRN Q5MIN PRN 05/22/18 18:00 05/23/18 17:05 DC 05/22/18 18:18 0.4 MG Oxycodone/ Acetaminophen (Percocet 10/325) 1 tab PRN QID PRN 05/22/18 20:00 05/24/18 13:24 DC 05/24/18 11:16 1 TAB Tizanidine HCl (Zanaflex) 2 mg PRN Q8HRS PRN 05/22/18 20:00 05/24/18 13:24 DC 05/22/18 22:05 2 MG Allergies Allergies Physical Exam Physical Exam Constitutional: Well developed, well nourished, no acute distress, non-toxic appearance HENT: Normocephalic, atraumatic, bilateral external ears normal, oropharynx moist Eyes: PERRLA, EOMI, conjunctiva normal Neck: Normal range of motion, no tenderness Cardiovascular:Heart rate regular rhythm, no murmur Lungs & Thorax: Bilateral breath sounds clear to auscultation Skin: Warm, dry, no erythema, no rash Extremities: No edema Neurologic: Alert and oriented X 3 Psychologic: Affect normal Current Patient Data Vital Signs Vital Signs Date Time Temp Pulse Resp B/P (MAP) Pulse Ox O2 Delivery O2 Flow Rate FiO2 05/22/18 19:00 64 22 119/59 (79) 05/22/18 18:20 95 05/22/18 17:15 98.1 Room Air 98.1 Lab Values Laboratory Tests Test 05/22/18 18:08 White Blood Count 8.2 x10^3/uL (4.0-11.0) Red Blood Count 4.67 x10^6/uL (3.50-5.40) Hemoglobin 13.0 g/dL (12.0-15.5) Hematocrit 39.5 % (36.0-47.0) Mean Corpuscular Volume 85 fL (79-100) Mean Corpuscular Hemoglobin 28 pg (25-35) Mean Corpuscular Hemoglobin Concent 33 g/dL (31-37) Red Cell Distribution Width 14.0 % (11.5-14.5) Platelet Count 226 x10^3/uL (140-400) Neutrophils (%) (Auto) 62 % (31-73) Lymphocytes (%) (Auto) 26 % (24-48) Monocytes (%) (Auto) 9 % (0-9) Eosinophils (%) (Auto) 2 % (0-3) Basophils (%) (Auto) 1 % (0-3) Neutrophils # (Auto) 5.1 x10^3uL (1.8-7.7) Lymphocytes # (Auto) 2.2 x10^3/uL (1.0-4.8) Monocytes # (Auto) 0.7 x10^3/uL (0.0-1.1) Eosinophils # (Auto) 0.1 x10^3/uL (0.0-0.7) Basophils # (Auto) 0.1 x10^3/uL (0.0-0.2) Prothrombin Time 12.4 SEC (11.7-14.0) Prothrombin Time INR 1.0 (0.8-1.1) D-Dimer (Flaquita) 1.01 ug/mlFEU (0.00-0.50) H Sodium Level 131 mmol/L (136-145) L Potassium Level 3.9 mmol/L (3.5-5.1) Chloride Level 101 mmol/L (98-107) Carbon Dioxide Level 25 mmol/L (21-32) Anion Gap 5 (6-14) L Blood Urea Nitrogen 23 mg/dL (7-20) H Creatinine 1.0 mg/dL (0.6-1.0) Estimated GFR (Cockcroft-Gault) 67.1 Glucose Level 160 mg/dL (70-99) H Calcium Level 9.1 mg/dL (8.5-10.1) Troponin I Quantitative < 0.017 ng/mL (0.000-0.055) ET-Iac-T-Type Natriuretic Peptide 84 pg/mL (0-124) Laboratory Tests 05/22/18 18:08 Laboratory Tests 05/22/18 18:08 EKG EKG No change from prior Interpretation Time: 17:20 Radiology/Procedures Radiology/Procedures [facility] [address] [place] [address] IMAGING REPORT Signed PATIENT: MYCHAL TORRES ACCOUNT: [id number] : 1950 LOCATION: ER AGE: 68 SEX: F EXAM STATUS: REG ER ORD. PHYSICIAN: VIJAYA RYAN MD REASON: chest pain rule out PE PROCEDURE: CT ANGIOGRAPHY CHEST Exam performed: CT pulmonary angiogram of the chest with contrast. Date: 05/22/18. Comparison: CT chest without contrast from August 05, 2016 Indication: Chest pressure Technique: Contiguous helical acquisitions are obtained through the chest during intravenous administration of [ 75 ] cc of [ Omnipaque 300 ] . [Sagittal and coronal MIP images were obtained and reviewed Findings: The structures at the thoracic inlet including both lobes of the thyroid gland appear normal. Pulmonary arterial opacification is adequate to evaluate for pulmonary embolus. There is no evidence for pulmonary embolism. The heart is normal in size. No pericardial effusion is seen. No mediastinal or hilar lymphadenopathy is seen. There is a 3.3 mm soft tissue density nodule in the left apex. 3.4 mm soft tissue density nodule in the right middle lobe as well as a 4.2 mm nodule in the anterior basal segment left lower lobe. These are stable since previous CT chest without contrast from August 05, 2016. There are minimal infiltrates in the left posterior costophrenic sulcus as well as in the medial basal segment of the right lower lobe. There is no pleural effusion Left adrenal nodule is stable, the remainder upper abdominal structures appear unremarkable. Spondylotic changes Impression: 1. Study is negative for pulmonary embolism 2. Minimal infiltrate left lung base . 3. Unchanged left adrenal nodule, likely benign. PQRS Compliance Statement: One or more of the following individualized dose reduction techniques were utilized for this examination: 1. Automated exposure control 2. Adjustment of the mA and/or kV according to patient size 3. Use of iterative reconstruction technique Electronically signed by: Sridevi Kidd MD (05/22/2018 8:24 PM) [facility] DICTATED and SIGNED BY: SRIDEVI KIDD MD DATE: 05/22/182007 [facility] [address] [place] [address] IMAGING REPORT Signed PATIENT: MYCHAL TORRES ACCOUNT: [id number] : 1950 LOCATION: ER AGE: 68 SEX: F EXAM STATUS: REG ER ORD. PHYSICIAN: MARGARITO VILLALOBOS DO REASON: Chest Pain PROCEDURE: PORTABLE CHEST 1V Exam performed: One view chest. Indication: chest pain today Date of Service: 05/22/2018 5:24 PM Comparison: 2 views chest from 03/16/2015. Single AP upright portable view chest findings: Cardiomediastinal silhouette is within limits of normal. Ectatic tortuous aorta redemonstrated. No acute infiltrates, effusion or pneumothorax is detected. The bony structures are normal. Impression: No acute cardiopulmonary process is detected. Electronically signed by: Sridevi Kidd MD (05/22/2018 5:42 PM) [facility] DICTATED and SIGNED BY: SRIDEVI KIDD MD DATE: 05/22/18 405 Course & Med Decision Making Course & Med Decision Making Pertinent Labs and Imaging studies reviewed. (See chart for details) Emergency Department course Patient presents with chest pain DDx-ACS, PE, CHF, PNA 17:35: Patient is evaluated and examined. She is having heaviness in her chest which she states is similar to prior cardiac related pain. She does have a significant coronary artery disease history. She also has Fabry's disease and states that she does feel that she might be having some symptoms similar to a flare of that condition although the heaviness in her chest is different. She does not typically have chest pain associated with Fabry's disease. ASA, morphine, NTG and standard cardiac workup is ordered. 18:00: Transfer of care to Dr. Ryan. (please f/u on labs, imaging) 19:15 Initial ECG and troponin showed no evidence of ACS. Case discussed with Dr. Collins who agreed with admission. 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 D-dimer elevated. CTA chest pending. 19:[address] Zepeda who will consult on the patient. Dragon Disclaimer Dragon Disclaimer This electronic medical record was generated, in whole or in part, using a voice recognition dictation system. Departure Departure Impression: Primary Impression: Chest pain Disposition: 09 ADMITTED INPATIENT Admitting Physician: Mitesh Collins Condition: STABLE Referrals: MITESH COLLINS MD (PCP) Scripts Isosorbide Mononitrate (ISOSORBIDE MONONITRATE ER) 30 Mg Tab.er.24h 1 TAB PO DAILY for 30 Days, #30 TAB 5 Refills Prov: MITESH COLLINS MD 05/24/18 Cholecalciferol (Vitamin D3) (VITAMIN D) 1,000 Unit Tablet 1000 UNIT PO DAILY for 30 Days, #30 TAB Prov: MITESH COLLINS MD 05/24/18 Levothyroxine Sodium (SYNTHROID) 137 Mcg Tablet 137 MCG PO DAILY07 for 30 Days, #30 TAB Prov: MITESH COLLINS MD 05/24/18 Potassium Chloride (KLOR-CON M20) 20 Meq Tab.er.prt 20 MEQ PO BID for 30 Days, #60 TAB.SR Prov: MITESH COLLINS MD 05/24/18 Tizanidine Hcl (TIZANIDINE HCL) 4 Mg Tablet 2 MG PO PRN Q8HRS PRN for MUSCLE SPASMS for 30 Days, #30 TAB Prov: MITESH COLLINS MD 05/24/18 Problem Qualifiers Primary Impression: Chest pain Chest pain type: precordial pain Qualified Codes: R07.2 - Precordial pain MARGARITO VILLALOBOS DO May 22, 2018 17:32 VIJAYA RYAN MD May 22, 2018 19:20
--- NOTE | 2018-05-22 17:45 | RAD ---
Exam performed: One view chest. Indication: chest pain today Date of Service: 05/22/2018 5:24 PM Comparison: 2 views chest from 03/16/2015. Single AP upright portable view chest findings: Cardiomediastinal silhouette is within limits of normal. Ectatic tortuous aorta redemonstrated. No acute infiltrates, effusion or pneumothorax is detected. The bony structures are normal. Impression: No acute cardiopulmonary process is detected. Electronically signed by: Sridevi Kidd MD (05/22/2018 5:42 PM) [employer]
[2018-05-22] MEDS ORDERED: MORPHINE SULFATE 10 MG/ML VIAL. SQ ONE (18:00)
[2018-05-22] MEDS ORDERED: NITROGLYCERIN SUBLINGUAL 0.4 MG BOTTLE OF 25. SL PRN (18:00)
[2018-05-22] MEDS ORDERED: ASPIRIN 325 MG TABLET PO ONE (18:00)
[2018-05-22 18:23] LABS: BASO # 0.1 x10^3/uL (0.0-0.2); BASO % 1 % (0-3); EOS # 0.1 x10^3/uL (0.0-0.7); EOS % 2 % (0-3); HEMATOCRIT 39.5 % (36.0-47.0); LYMPH # 2.2 x10^3/uL (1.0-4.8); LYMPH % 26 % (24-48); MEAN CORPUSCULAR HEMOGLOBIN 28 pg (25-35); MEAN CORPUSCULAR HGB CONC 33 g/dL (31-37); MEAN CORPUSCULAR VOLUME 85 fL (79-100); MONO # 0.7 x10^3/uL (0.0-1.1); MONO % 9 % (0-9); NEUT # 5.1 x10^3uL (1.8-7.7); NEUT % 62 % (31-73); PLATELET COUNT 226 x10^3/uL (140-400); RED BLOOD COUNT 4.67 x10^6/uL (3.50-5.40); WHITE BLOOD COUNT 8.2 x10^3/uL (4.0-11.0)
[2018-05-22 18:31] LABS: PROTHROMBIN TIME PATIENT 12.4 SEC (11.7-14.0)
[2018-05-22 18:33] LABS: CALCIUM 9.1 mg/dL (8.5-10.1); GFR 67.1
[2018-05-22 18:34] LABS: D-DIMER 1.01 ug/mlFEU (0.00-0.50); POTASSIUM 3.9 mmol/L (3.5-5.1)
[2018-05-22] MEDS ORDERED: CONTRAST GIVEN. MC PRN (19:30)
[2018-05-22] MEDS ORDERED: IOHEXOL 300 MG/ML 100ML VIAL. IV ONE (19:30)
[2018-05-22] MEDS ORDERED: tiZANidine 4 MG TABLET. PO PRN (20:00)
[2018-05-22] MEDS ORDERED: ACETAMINOPHEN 325 MG TABLET. PO PRN (20:00)
--- NOTE | 2018-05-22 20:28 | RAD ---
Exam performed: CT pulmonary angiogram of the chest with contrast. Date: 05/22/18. Comparison: CT chest without contrast from August 05, 2016 Indication: Chest pressure Technique: Contiguous helical acquisitions are obtained through the chest during intravenous administration of [ 75 ] cc of [ Omnipaque 300 ] . [Sagittal and coronal MIP images were obtained and reviewed Findings: The structures at the thoracic inlet including both lobes of the thyroid gland appear normal. Pulmonary arterial opacification is adequate to evaluate for pulmonary embolus. There is no evidence for pulmonary embolism. The heart is normal in size. No pericardial effusion is seen. No mediastinal or hilar lymphadenopathy is seen. There is a 3.3 mm soft tissue density nodule in the left apex. 3.4 mm soft tissue density nodule in the right middle lobe as well as a 4.2 mm nodule in the anterior basal segment left lower lobe. These are stable since previous CT chest without contrast from August 05, 2016. There are minimal infiltrates in the left posterior costophrenic sulcus as well as in the medial basal segment of the right lower lobe. There is no pleural effusion Left adrenal nodule is stable, the remainder upper abdominal structures appear unremarkable. Spondylotic changes Impression: 1. Study is negative for pulmonary embolism 2. Minimal infiltrate left lung base . 3. Unchanged left adrenal nodule, likely benign. PQRS Compliance Statement: One or more of the following individualized dose reduction techniques were utilized for this examination: 1. Automated exposure control 2. Adjustment of the mA and/or kV according to patient size 3. Use of iterative reconstruction technique Electronically signed by: Sridevi Kidd MD (05/22/2018 8:24 PM) [facility]
[2018-05-22 21:50] VITALS: BP 140/78
[2018-05-22] MEDS: POTASSIUM CHLORIDE 20 MEQ TABLET.ER. PO SCH (22:04)
[2018-05-22] MEDS: oxyCODONE/APAP 10/325 1 TAB TABLET PO PRN (22:04)
[2018-05-22] MEDS: TOPIRAMATE 100 MG TABLET. PO SCH (22:05)
[2018-05-22] MEDS: AMITRIPTYLINE HCL 10 MG TABLET. PO SCH (22:05)
[2018-05-22] MEDS: SENNOSIDES/DOCUSATE 8.6/50MG TABLET. PO SCH (22:05)
[2018-05-22] MEDS ORDERED: MORPHINE SULFATE 2 MG/ML VIAL. IV PRN (22:45)
[2018-05-22 23:00] VITALS: BP 96/51
[2018-05-23] VITALS (14 sets, daily range): BP systolic 101–176; BP diastolic 47–156
[2018-05-23] MEDS ORDERED: INFLUENZA VAX SCREEN BY RX. MC PRN (01:00)
[2018-05-23] MEDS: MORPHINE SULFATE 2 MG/ML VIAL. IV PRN ×4 (06:19→22:53)
[2018-05-23] MEDS: LEVOTHYROXINE 137 MCG TABLET PO SCH (06:19)
[2018-05-23] MEDS: SUCRALFATE 1 GM/10 ML ORAL.SUSP. PO SCH ×4 (07:30→21:03)
[2018-05-23] MEDS: TOPIRAMATE 100 MG TABLET. PO SCH ×2 (09:00→21:02)
[2018-05-23] MEDS: POTASSIUM CHLORIDE 20 MEQ TABLET.ER. PO SCH ×2 (09:00→21:03)
--- NOTE | 2018-05-23 09:45 | PDOC2 ---
GENE NAJERA PRIMARY CLINICIAN 05/23/18 0945: CARDIAC CONSULT DATE OF CONSULT Date of Consult DATE: 05/23/18 TIME: 09:15 REASON FOR CONSULT Reason for Consult: Chest pain REFERRING PHYSICIAN Referring Physician: Connor SOURCE Source: Chart review, Patient HISTORY OF PRESENT ILLNESS HISTORY OF PRESENT ILLNESS This is a pleasant 68 yo female admitted for complains of chest pain. Reports that she started having chest heaviness yesterday morning. This was associated with SOA. This has been up and down yesterday and continued on today. These are the same symptoms from she had stent in the past. Denies any nausea, palpitations, frequent dizziness. Actually before yesterday she has been doing well and she has been compliant with her medications. Denies any recent falls or injury, significant heartburn, intractable coughing, recent long distance travel, MVA, any recent infection. PAST MEDICAL HISTORY Past Medical History Cardiovascular: CAD (stents patent on cath; 2013), HTN, Hyperlipidemia, Other ( PAD with previous NURSE EMERGENCY ROOM to right popliteal ) Pulmonary: No pertinent hx GI: GERD, Gastritis, Peptic Ulcer disease, Other (esophageal AVMs; SBO with colon resection) Heme/Onc: No pertinent hx Hepatobiliary: No pertinent hx Psych: Anxiety, Depression Rheumatologic: Other (Fabry's disease) Infectious disease: No pertinent hx ENT: No pertinent hx Endocrine: Hypothyroidism Dermatology: No pertinent hx PAST SURGICAL HISTORY Past Surgical History Appendectomy, Cholecystectomy, Colon Resection, Other (salpingo-oopherectomy; AAA repair), PCI/stent to LAD FAMILY HISTORY Family History: Heart Disease, Other (son with fabry) SOCIAL HISTORY Smoke: Quit ALCOHOL: none Drugs: None Lives: with Family CURRENT MEDICATIONS CURRENT MEDICATIONS Current Medications Medications (Trade) Dose Ordered Sig/Priya Route PRN Reason Start Time Stop Time Status Last Admin Dose Admin Aspirin (Nara Aspirin) 325 mg 1X ONCE PO 05/22/18 18:00 05/22/18 18:01 DC 05/22/18 18:17 Nitroglycerin (Nitrostat) 0.4 mg PRN Q5MIN PRN SL CHEST PAIN 05/22/18 18:00 05/22/18 18:18 Morphine Sulfate (Morphine Sulfate) 10 mg 1X ONCE SQ 05/22/18 18:00 05/22/18 18:01 DC 05/22/18 18:20 Iohexol (Omnipaque 300 Mg/ml) 100 ml 1X ONCE IV 05/22/18 19:30 05/22/18 19:31 DC 05/22/18 19:45 Amitriptyline HCl (Elavil) 10 mg QHS PO 05/22/18 22:00 05/22/18 22:05 Levothyroxine Sodium (Synthroid) 137 mcg DAILY07 PO 05/23/18 07:00 05/23/18 06:19 Oxycodone/ Acetaminophen (Percocet 10/325) 1 tab PRN QID PRN PO SEVERE PAIN 05/22/18 20:00 05/22/18 22:04 Potassium Chloride (Klor-Con) 20 meq BID PO 05/22/18 22:00 05/22/18 22:04 Senna/Docusate Sodium (Senna Plus) 2 tab QHS PO 05/22/18 22:00 05/22/18 22:05 Tizanidine HCl (Zanaflex) 2 mg PRN Q8HRS PRN PO MUSCLE SPASMS 05/22/18 20:00 05/22/18 22:05 Topiramate (Topamax) 100 mg BID PO 05/22/18 22:00 05/22/18 22:05 Morphine Sulfate (Morphine Sulfate) 2 mg PRN Q4HRS PRN IV PAIN 05/22/18 22:45 05/23/18 06:19 ALLERGIES ALLERGIES: Coded Allergies: Penicillins (Verified Allergy, Intermediate, Hives, 05/10/18) enalapril (Verified Allergy, Intermediate, cough, 05/10/18) fentanyl (Verified Allergy, Intermediate, headaches, 05/10/18) lisinopril (Verified Allergy, Intermediate, 05/10/18) pravastatin (Verified Allergy, Intermediate, 05/10/18) ubidecarenone (Verified Allergy, Intermediate, Itching, 05/10/18) COQ10 NUBIA Inhibitors (Verified Adverse Reaction, Intermediate, cough and migraine, 05/10/18) Lrxngtq-Txz-Iuc Reductase Inhibitor (Verified Adverse Reaction, Intermediate, Liver enzymes elevated, 05/10/18) clindamycin (Verified Adverse Reaction, Intermediate, c-Diff Diarrhea, ) diazepam (Verified Adverse Reaction, Intermediate, AMS, 05/10/18) duloxetine (Verified Adverse Reaction, Intermediate, Tremors, 05/10/18) ezetimibe (Verified Adverse Reaction, Intermediate, Nausea and Vomiting, ) propranolol (Verified Adverse Reaction, Intermediate, Headaches, 05/10/18) ROS Review of System 14 point ROS evaluated with pertinent positives noted per HPI PHYSICAL EXAM General: Alert, Oriented X3, Cooperative, No acute distress HEENT: Atraumatic, Mucous membr. moist/pink Lungs: Clear to auscultation, Normal air movement Heart: Regular rate (SR), Normal S1, Normal S2, Other (2/6 systolic murmur to LLS border) Abdomen: Soft, No tenderness Extremities: No cyanosis, No edema Skin: No breakdown, No significant lesion Neuro: Normal speech, Sensation intact Psych/Mental Status: Mental status NL, Mood NL MUSCULOSKELETAL: Osteoarthritic changes both hands VITALS VITALS Vital Signs Date Time Temp Pulse Resp B/P (MAP) Pulse Ox O2 Delivery O2 Flow Rate FiO2 05/23/18 07:00 97.7 59 18 141/73 (95) 97 Room Air 97.7 LABS Lab: Laboratory Tests Test 05/22/18 18:08 05/22/18 22:05 05/23/18 04:50 White Blood Count 8.2 x10^3/uL (4.0-11.0) Red Blood Count 4.67 x10^6/uL (3.50-5.40) Hemoglobin 13.0 g/dL (12.0-15.5) Hematocrit 39.5 % (36.0-47.0) Mean Corpuscular Volume 85 fL (79-100) Mean Corpuscular Hemoglobin 28 pg (25-35) Mean Corpuscular Hemoglobin Concent 33 g/dL (31-37) Red Cell Distribution Width 14.0 % (11.5-14.5) Platelet Count 226 x10^3/uL (140-400) Neutrophils (%) (Auto) 62 % (31-73) Lymphocytes (%) (Auto) 26 % (24-48) Monocytes (%) (Auto) 9 % (0-9) Eosinophils (%) (Auto) 2 % (0-3) Basophils (%) (Auto) 1 % (0-3) Neutrophils # (Auto) 5.1 x10^3uL (1.8-7.7) Lymphocytes # (Auto) 2.2 x10^3/uL (1.0-4.8) Monocytes # (Auto) 0.7 x10^3/uL (0.0-1.1) Eosinophils # (Auto) 0.1 x10^3/uL (0.0-0.7) Basophils # (Auto) 0.1 x10^3/uL (0.0-0.2) Prothrombin Time 12.4 SEC (11.7-14.0) Prothromb Time International Ratio 1.0 (0.8-1.1) D-Dimer (Flaquita) 1.01 ug/mlFEU (0.00-0.50) Sodium Level 131 mmol/L (136-145) Potassium Level 3.9 mmol/L (3.5-5.1) Chloride Level 101 mmol/L (98-107) Carbon Dioxide Level 25 mmol/L (21-32) Anion Gap 5 (6-14) Blood Urea Nitrogen 23 mg/dL (7-20) Creatinine 1.0 mg/dL (0.6-1.0) Estimated GFR (Cockcroft-Gault) 67.1 Glucose Level 160 mg/dL (70-99) Calcium Level 9.1 mg/dL (8.5-10.1) Troponin I Quantitative < 0.017 ng/mL (0.000-0.055) 0.030 ng/mL (0.000-0.055) 0.026 ng/mL (0.000-0.055) ZS-Eda-S-Type Natriuretic Peptide 84 pg/mL (0-124) Triglycerides Level 161 mg/dL (0-150) Cholesterol Level 245 mg/dL (0-200) LDL Cholesterol, Calculated 164 mg/dL (0-100) VLDL Cholesterol, Calculated 32 mg/dL (0-40) Non-HDL Cholesterol Calculated 196 mg/dL (0-129) HDL Cholesterol 49 mg/dL (40-60) Cholesterol/HDL Ratio 5.0 ECHOCARDIOGRAM ECHOCARDIOGRAM <Conclusion> The left ventricular systolic function is normal. The ejection fraction is estimated at 55-60%. There is normal LV segmental wall motion. Transmitral Doppler flow pattern is Grade I-abnormal relaxation pattern. Mild mitral regurgitation. Mild tricuspid regurgitation. There is no evidence of significant pericardial effusion. DATE: 10/13/17 2698 HEART CATH HEART CATH Conclusion 1. Widely patent stent in the left anterior descending artery and 70% stenosis in a small to medium caliber RCA that was described in prior cardiac catheterization. 2. Normal left ventricle systolic function with ejection fraction estimated at 55-60%. 3. No significant mitral regurgitation or aortic stenosis. Recommendations The right coronary artery stenosis did not show any significant change from prior cardiac catheterization and based on the size of the vessel and diffuse distal disease I would recommend optimizing medical management. DATE: 06/20/14 1019 ~ ASSESSMENT/PLAN ASSESSMENT/PLAN 1. Chest pain: troponin series nml. EKG SR without acute changes. UA features. 2. CAD: last [facility] 2013 with patent LAD stent with 70% RCA treated medically at that time 3. HLP: LDL 164 on home livalo TIW (this is the only statin she could tolerate) 4. HTN: controlled 5. Fabry disease Recommendations 1. Continue secondary prevention. 2. TTE today. Unable to tolerate livalo increase due to myopathy, need to add PCSK9 inhibitor and this will be arranged as an outpt. . 3. [facility] today, discussed risks and benefits explained and agreeable to proceed. DANYELL JACOBO MD 05/23/18 1636: CARDIAC CONSULT ASSESSMENT/PLAN ASSESSMENT/PLAN Patient seen and examined. Agree with ICT DEVELOPMENT MANAGER's assessment and plan. Chest pain with typical features. Myocardial infarction has been ruled out. Plan for left heart catheterization and possible angioplasty today. Thank you for your consultation. GENE NAJERA APRN May 23, 2018 09:45 DANYELL JACOBO MD May 23, 2018 16:36
--- NOTE | 2018-05-23 09:53 | PDOC ---
Provider Note Provider Note history and physical dictated # [id number] PONCE MAST MD May 23, 2018 09:53
[2018-05-23] MEDS: oxyCODONE/APAP 10/325 1 TAB TABLET PO PRN (09:54)
--- NOTE | 2018-05-23 10:54 | HP ---
ADMIT DATE: 05/23/2018 LOCATION: She is in room 514. HISTORY OF PRESENT ILLNESS: The patient is a 68-year-old female with a history of coronary artery disease with previous coronary artery angioplasties and stents, peripheral arterial disease with angioplasties and stents, who has hypertension, hyperlipidemia and Fabry disease, hypothyroidism, gastroesophageal reflux disease, noted the onset of chest pressure in the retrosternal area yesterday morning, which lasted all day. She did not take her sublingual nitroglycerin and when she went to the Emergency Room, was given nitroglycerin, which did not help and the chest pressure eventually resolved last night. Troponin levels are negative x 3. She had some shortness of breath associated with this and she said the chest pressure was similar to when she had a myocardial infarction in the past. In addition, she denied any diaphoresis, nausea or vomiting. In addition, she is having a lot of pain in her lower extremities related to her Fabry crisis. She is therefore admitted for further evaluation of her chest pain. Her electrocardiogram showed some T-wave inversions in the lateral precordial leads. She is therefore admitted for further evaluation of her chest pain. ALLERGIES AND INTOLERANCES: INCLUDE NUBIA INHIBITORS, PENICILLIN AND SHE CANNOT TOLERATE ANY OTHER STATIN EXCEPT FOR LIVALO AND SHE CAN ONLY TAKE IT 3 TIMES A WEEK, OTHERWISE SHE HAS MYALGIAS. ALSO, CANNOT TOLERATE CLINDAMYCIN, DIAZEPAM, CYMBALTA, ENALAPRIL, ZETIA, FENTANYL, LISINOPRIL, PRAVASTATIN, PROPRANOLOL. MEDICATIONS PRIOR TO ADMISSION: Include Elavil 10 mg at bedtime, amlodipine 5 mg every day, aspirin 325 mg every day, Carafate liquid 1 gram before meals t.i.d. and at bedtime. She was on ferrous sulfate 325 mg b.i.d., but her hemoglobin is normal, so we will discontinue that; levothyroxine 137.5 mcg daily, Livalo 1 mg on Mondays, Wednesdays, and Fridays; Claritin 10 mg every day, MiraLax 17 grams daily, multiple vitamin once a day, Percocet 10/325 one tablet q.i.d. p.r.n. for her Fabry crisis, Plavix 75 mg every day, potassium chloride 20 mEq b.i.d., Senokot-S 2 tablets at bedtime, tizanidine 2 mg every 8 hours p.r.n., Topamax 100 mg b.i.d., Dyazide 37.5/25 mg 1 every day, Ventolin inhaler p.r.n. and vitamin D 1000 units every day. PAST MEDICAL HISTORY: Significant for Fabry disease and she receives Fabrazyme infusion every 2 weeks as an outpatient at [facility]. She also has hypertension, hyperlipidemia, peripheral arterial disease with previous angioplasties and stents, coronary artery disease with previous angioplasties and stents, hypothyroidism, gastroesophageal reflux disease, ischemic colitis in 2001, Clostridium difficile colitis in 2010. She has had a cholecystectomy, appendectomy, surgery for bowel obstruction x 2, tubal ligation and hysterectomy. SOCIAL HISTORY: She does not drink alcohol nor does she smoke cigarettes. FAMILY HISTORY: There was, I believe, somebody else in her family who also had Fabry disease. REVIEW OF SYSTEMS: GENERAL: There has been no fever, chills or sweats. CARDIOVASCULAR: She had the chest pressure. PULMONARY: Some shortness of breath with the chest pressure. GASTROINTESTINAL: No diarrhea. ENDOCRINE: No diabetes mellitus. SKIN: No rashes. MUSCULOSKELETAL: She has got the aches and pains related to the Fabry crisis in the lower extremities. The rest of systems reviewed and negative except as stated in history of present illness. PHYSICAL EXAMINATION: VITAL SIGNS: Temperature 97.7 degrees, apical pulse is regular at 60, respiratory rate 18, blood pressure 141/73, oxygen saturation 97% on room air. HEENT: Eyes: Gaze is conjugate. Mouth: Tongue is midline. NECK: There is no cervical lymphadenopathy. HEART: Reveals an S1, S2. There is no S3 or murmur. LUNGS: Clear. ABDOMEN: Soft, nontender with no hepatosplenomegaly, masses or tenderness. EXTREMITIES: Lower extremities without edema. SKIN: No rashes. NEUROLOGIC: Revealed no facial weakness or focal weakness in arms or legs. Examination of her lower extremities, 2+ dorsalis pedis pulse on the right. I could not feel any pulses in the left foot, but the left foot is not cool. LABORATORY DATA: White count 8.2, hemoglobin 13 with a platelet count 326,000, 62 polys and 26 lymphocytes, MCV of 85. INR 1.0. D-dimer is increased at 1.01. She had a serum sodium 131, potassium 3.9, chloride 101, total CO2 is 25, BUN 23, creatinine 1.0, blood sugar was 160. Troponin levels negative x 3. ProBNP was 84. Cholesterol was 245, triglycerides 161, LDL 164 and the HDL was 49. She had a chest x-ray done, which showed no acute abnormality. She had a CAT scan of the chest angiogram done due to elevated D-dimer and the study was negative for pulmonary embolus. She had minimal infiltrate in left lung base, unchanged left adrenal nodule, likely benign, and she had some lung nodules noted bilaterally, 3.3 cm soft tissue density nodule in the left apex, 3.4 mm soft tissue nodule in the right middle lobe and a 4.2 mm nodule in the anterior basal segment of left lower lobe. These are stable since 08/05/2016. Furthermore, the patient is followed by Dr. Aguilar, our broomcorn scraper, who sees her every July to follow up on the lung nodules she states. Her EKG showed normal sinus rhythm with some T-wave inversions in the lateral precordial leads. She, I believe, had a left axis deviation, left anterior hemiblock. ASSESSMENT: 1. Chest pain, myocardial infarction has been ruled out, but need to rule out an angina equivalent. 2. Coronary artery disease with previous coronary angioplasty and stent. 3. Peripheral arterial disease, previous angioplasty and stent. 4. Hypertension. 5. Hyperlipidemia. 6. Fabry disease with crisis. 7. Hypothyroidism. 8. Gastroesophageal reflux disease. 9. Hyponatremia. PLAN: At this time, I discussed the case with the irrigator head nurse practitioner and the patient will be having a cardiac catheterization later today. We will repeat the basic metabolic profile tomorrow. We will continue with her current medications. We will check a basic metabolic profile tomorrow as mentioned. We discussed that she would be a candidate for Repatha as an outpatient. PONCE MAST MD DR: DANA/mo JOB#: [id number] / [id number]
[2018-05-23] MEDS: CLOPIDOGREL BISULFATE 75 MG TABLET PO SCH (11:04)
[2018-05-23] MEDS: amLODIPine BESYLATE 5 MG TABLET PO SCH (11:04)
[2018-05-23] MEDS: ASPIRIN 325 MG TABLET PO SCH (11:04)
--- NOTE | 2018-05-23 11:09 | CARD ---
MR#: [id number] Date of Study: 05/23/2018 Ordering Physician: PONCE MAST, Referring Physician: PONCE MAST, Tech: Rima Almeida RDCS APPROVED REPORT EXAM: Two-dimensional and M-mode echocardiogram with Doppler and color Doppler. Other Information Quality : GoodHR: 55bpm Rhythm : Bradycardia INDICATION Cardiac Disease: CAD Chest Pain 2D DIMENSIONS RVDd2.7 (2.9-3.5cm)IVSd1.7 (0.7-1.1cm) Aortic Root(2D)3.1 (2.0-3.7cm)LVDd4.7 (3.9-5.9cm) LVOT Diameter2.1 (1.8-2.4cm)PWd1.3 (0.7-1.1cm) IVSs1.9 (0.8-1.2cm)LVDs3.5 (2.5-4.0cm) FS (%) 26.0 %PWs1.5 (0.8-1.2cm) SV52.2 mlLVEF(%)52.0 (>50%) Aortic Valve AoV Peak Abelino.130.5cm/sAoV VTI27.9cm AO Peak GR.6.8mmHgLVOT Peak Abelino.101.9cm/s LVOT VTI 20.49cmAO Mean GR.4mmHg LEAH (VMAX)1.43yg0AFT (VTI)2.55cm2 Mitral Valve MV E Kdatmhzd98.7cm/sMV DECEL [id number] MV A Cyyemdtj69.2cm/sMV VGH31ne E/A Ratio1.0MVA (PHT)3.85cm2 TDI E/Medial E'18.6 Pulmonary Valve PV Peak Bpmkagzk994.9cm/sPV Peak Grad.4mmHg Tricuspid Valve TR P. Ubcigcog266hx/sRAP LJOYCMPV8enBh TR Peak Gr.41rxSuOLFK50mbMu Pulmonary Vein S1 Rbtwwueo56.9cm/sD2 Cpqazarl19.1cm/s LEFT VENTRICLE The left ventricle is normal size. There is mild to moderate concentric left ventricular hypertrophy. The left ventricular systolic function is normal and the ejection fraction is within normal range. T he Ejection Fraction is >55%. There is normal LV segmental wall motion. Transmitral Doppler flow asad mikey is Grade I-abnormal relaxation pattern. RIGHT VENTRICLE The right ventricle is normal size. There is normal right ventricular wall thickness. The right ventr icular systolic function is normal. ATRIA The left atrium size is normal. The right atrium size is normal. The interatrial septum is intact wit h no evidence for an atrial septal defect or patent foramen ovale as noted on 2-D or Doppler imaging. AORTIC VALVE The aortic valve is thickened but opens well. The aortic valve is trileaflet. Doppler and Color Flow revealed no significant aortic regurgitation. There is no significant aortic valvular stenosis. MITRAL VALVE The mitral valve is normal in structure and function. There is no evidence of mitral valve prolapse. There is no mitral valve stenosis. Doppler and Color-flow revealed trace to mild mitral regurgitation . TRICUSPID VALVE The tricuspid valve is normal in structure and function. Doppler and Color Flow revealed trace tricus pid regurgitation. The PA pressure was estimated at 24 mmHg. There is no tricuspid valve prolapse or vegetation. There is no tricuspid valve stenosis. PULMONIC VALVE Doppler and Color Flow revealed no pulmonic valvular regurgitation. There is no pulmonic valvular lily nosis. GREAT VESSELS The aortic root is normal in size. The ascending aorta is normal in size. The IVC is normal in size a nd collapses >50% with inspiration. PERICARDIAL EFFUSION There is no evidence of significant pericardial effusion. Fat pad noted. Critical Notification Critical Value: No <Conclusion> The left ventricular systolic function is normal and the ejection fraction is within normal range. Th e Ejection Fraction is >55%. There is normal LV segmental wall motion. There is mild to moderate concentric left ventricular hypertrophy. Signed by : Eliu Drake, Electronically Approved : 05/23/2018 11:08:40
[2018-05-23] MEDS ORDERED: IOHEXOL 300 MG/ML 100ML VIAL. ONE (11:29)
[2018-05-23] MEDS ORDERED: LIDOCAINE 1% PF 30 ML VIAL. ONE (12:41)
[2018-05-23] MEDS ORDERED: MIDAZOLAM HCL/PF 5 MG/5 ML VIAL. ONE (12:45)
[2018-05-23] MEDS ORDERED: MORPHINE SULFATE 10 MG/ML VIAL. ONE (12:45)
--- NOTE | 2018-05-23 12:51 | PDOC ---
MODERATE SEDATION ASSESSMENT RISKS/ALTERNATIVES Risks/Alternatives Risks and alternatives of this type of sedation and procedure discussed with: RISK/ALTERNATIVES: Patient H & P ON CHART H & P H & P on chart and reviewed for co-morbid conditions and appropriate labs. H&P ON CHART: Yes STATUS PREG STATUS ASSESSED: Yes MEDS/ALLERGIES REVIEWED Meds/Allergies Reviewed Medications and Allergies including time and route of recently administered narcotics and sedatives. MEDS/ALLERGIES REVIEWED: Yes ASA RATING ASA RATING: II AIRWAY ASSESSMENT Airway Assessment Airway patency, oral function limitations, presence of caps, crowns, dentures, partials, and ability to extend neck assessed. AIRWAY ASSESSMENT: Yes MALLAMPATI SCORE MALLAMPATI SCORE: II PRE-SEDATION ASSESSMENT PRE-SEDATION ASSESSMENT: Yes GUNJAN DEL TORO MD May 23, 2018 12:51
[2018-05-23] MEDS ORDERED: LIDOCAINE 1% PF 30 ML VIAL. INJ ONE (13:00)
[2018-05-23] MEDS ORDERED: MORPHINE SULFATE 10 MG/ML VIAL. IV ONE (13:00)
[2018-05-23] MEDS ORDERED: IOHEXOL 300 MG/ML 100ML VIAL. IART ONE (13:00)
[2018-05-23] MEDS ORDERED: IV NORMAL SALINE 1000ML BAG 1,000 ML IV SCH (13:46)
[2018-05-23] MEDS ORDERED: NITROGLYCERIN SUBLINGUAL 0.4 MG BOTTLE OF 25. SL PRN (14:00)
[2018-05-23] MEDS ORDERED: 0.9 % SODIUM CHLORIDE 10 ML DISP.SYRIN. IV PRN (14:00)
--- NOTE | 2018-05-23 15:12 | CARD ---
MR#: [id number] Date of Study: 05/23/2018 Ordering Physician: GENE NAJERA, Referring Physician: PONCE MAST Tech: Pascual Meadows RT (R) APPROVED REPORT Procedures Left heart catheterization Left ventriculogram Selective coronary angiogram The patient is a 68-year-old female with a history of previous stenting and a myocardial infarction. She was admitted through the emergency room with episodes of chest discomfort. Peak troponin was 0.03 . In the setting of her new onset of chest pain and previous coronary stents cardiac catheterization was recommended. Risks and benefits were discussed with the patient. She agreed to proceed. After informed consent was obtained the patient was brought to the heart catheterization lab. The are a of the right femoral artery was prepared the usual manner with Betadine, sterile draping and local anesthetic. An 18-gauge needle was used to enter the right femoral artery, a wire placed and a 6 Fren ch sheath placed over the wire. A 6 Belgian JL4 diagnostic catheter was used to engage the left hull ry system. After several injections it was replaced with a JL 5 for better opacification. This cathet er was then removed and a 6 Belgian Kuldip right diagnostic catheter was advanced to the ascending a marie. It was used for injections of the right coronary artery. A pigtail catheter was then advanced t he ascending aorta and the left ventricle. Pressures were obtained. A 30 CRUZ left ventriculogram was performed. Pullback pressures were obtained. The catheter was removed from the patient. The sheath w as then removed and sealed with an Angio-Seal product. The patient was moved to the holding area in s table condition. Hemodynamics. LV pressure 146/4, 12. Aortic root pressure 144/62. Coronaries Left main. The left main was a very short vessel with no lesions. Left anterior descending. The LAD was a moderate size vessel. A previous mid stent was widely patent. A previous first diagonal stent was widely patent. It had mild diffuse distal disease. Left circumflex. The left circumflex is a moderately size vessel. In a large obtuse marginal branch t here was a proximal 30% lesion and a distal 30% lesion. Right coronary artery. The right coronary was a small vessel. It had a mid occlusion. A small RV bran ch had a 40% long lesion. Of note the mid right coronary artery on an angiogram 4 years previously wa s a very small diffusely diseased vessel. Left ventriculogram. Left ventricle showed normal left ventricular systolic function and an ejection fraction of 55-60%. <Conclusion> Widely patent stents in the LAD and first diagonal vessels. Mild to moderate disease in the left circumflex. Mid occlusion of a small right coronary artery. As noted above this portion of the vessel was diffuse ly diseased and small on an angiogram 4 years ago. Normal left ventricular systolic function. Signed by : Joseph Dunn MD Electronically Approved : 05/23/2018 15:10:48
[2018-05-23] MEDS: MULTIVITAMIN with MINERAL TABLET. PO SCH (15:58)
[2018-05-23] MEDS: TRIAMTERENE/HCTZ 37.5/25MG TABLET. PO SCH (15:58)
[2018-05-23] MEDS: CHOLECALCIFEROL (VITAMIN D3) 1,000 UNIT TABLET PO SCH (15:59)
[2018-05-23] MEDS: POLYETHYLENE GLYCOL 3350 17 GM PACKET. PO SCH (16:06)
[2018-05-23] MEDS: CETIRIZINE HCL 10 MG TABLET. PO SCH (16:17)
[2018-05-23] MEDS: SENNOSIDES/DOCUSATE 8.6/50MG TABLET. PO SCH (21:02)
[2018-05-23] MEDS: AMITRIPTYLINE HCL 10 MG TABLET. PO SCH (21:03)
[2018-05-23 23:15] LABS: HEMOGLOBIN A1C 6.2 % (4.8-5.6)
[2018-05-24 06:08] LABS: ALBUMIN 3.1 g/dL (3.4-5.0); ALBUMIN/GLOBULIN RATIO 0.9 (1.0-1.7); CALCIUM 8.7 mg/dL (8.5-10.1); CREATININE 0.8 mg/dL (0.6-1.0); GFR 86.8; POTASSIUM 3.6 mmol/L (3.5-5.1); TOTAL BILIRUBIN 0.2 mg/dL (0.2-1.0); TOTAL PROTEIN 6.7 g/dL (6.4-8.2)
[2018-05-24] MEDS: MORPHINE SULFATE 2 MG/ML VIAL. IV PRN (06:30)
[2018-05-24] MEDS: LEVOTHYROXINE 137 MCG TABLET PO SCH (06:36)
[2018-05-24 07:00] VITALS: BP 126/68
[2018-05-24] MEDS: SUCRALFATE 1 GM/10 ML ORAL.SUSP. PO SCH ×2 (07:43→11:16)
[2018-05-24] MEDS: amLODIPine BESYLATE 5 MG TABLET PO SCH (09:02)
[2018-05-24] MEDS: CHOLECALCIFEROL (VITAMIN D3) 1,000 UNIT TABLET PO SCH (09:02)
[2018-05-24] MEDS: TRIAMTERENE/HCTZ 37.5/25MG TABLET. PO SCH (09:02)
[2018-05-24] MEDS: MULTIVITAMIN with MINERAL TABLET. PO SCH (09:02)
[2018-05-24] MEDS: CETIRIZINE HCL 10 MG TABLET. PO SCH (09:02)
[2018-05-24] MEDS: POLYETHYLENE GLYCOL 3350 17 GM PACKET. PO SCH (09:02)
[2018-05-24] MEDS: ASPIRIN 325 MG TABLET PO SCH (09:03)
[2018-05-24] MEDS: POTASSIUM CHLORIDE 20 MEQ TABLET.ER. PO SCH (09:03)
[2018-05-24] MEDS: TOPIRAMATE 100 MG TABLET. PO SCH (09:06)
[2018-05-24] MEDS: CLOPIDOGREL BISULFATE 75 MG TABLET PO SCH (09:09)
--- NOTE | 2018-05-24 10:58 | PDOC ---
PROGRESS NOTES Subjective Subjective discussed with dr. Rene last night. cardiac cath reviewed. chest pain not cardiac. patient says dr. Zepeda wanted to start imdur. echo shows preserved LVEF with mild/modLVH. lab reviewed. sodium level normal. hdl 49 and ll 164 and will be evaluated for Repatha or similar agent as out patient. 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 Objective Objective Vital Signs Date Time Temp Pulse Resp B/P (MAP) Pulse Ox O2 Delivery O2 Flow Rate FiO2 05/24/18 09:02 73 126/68 05/24/18 08:00 Room Air 05/24/18 07:00 97.9 18 98 97.9 Intake and Output 05/24/18 07:00 Intake Total 360 ml Balance 360 ml Intake Oral 360 ml # Voids 4 Physical Exam Abdomen: Soft Heart: Regular rate, Normal S1, Normal S2 Extremities: No edema General: Alert HEENT: Atraumatic Lungs: Clear to auscultation Neuro: Normal speech Psych/Mental Status: Mental status NL Skin: No rashes Assessment Assessment Problems1. 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 Coronary artery disease with previous coronary angioplasty and stent. 3. Peripheral arterial disease, previous angioplasty and stent. 4. Hypertension. 5. Hyperlipidemia. 6. Fabry disease with crisis. 7. Hypothyroidism. 8. Gastroesophageal reflux disease. lung nodules followed by dr Aguilar Medical Problems: (1) Chest pain Status: Acute Plan Plan of Care dismiss today out patient fabrozyme today or tomorrow Comment Review of Relevant I have reviewed the following items nalini (where applicable) has been applied. Labs Laboratory Tests Test 05/22/18 18:08 05/22/18 22:05 05/23/18 04:50 05/24/18 04:30 White Blood Count 8.2 x10^3/uL (4.0-11.0) Red Blood Count 4.67 x10^6/uL (3.50-5.40) Hemoglobin 13.0 g/dL (12.0-15.5) Hematocrit 39.5 % (36.0-47.0) Mean Corpuscular Volume 85 fL (79-100) Mean Corpuscular Hemoglobin 28 pg (25-35) Mean Corpuscular Hemoglobin Concent 33 g/dL (31-37) Red Cell Distribution Width 14.0 % (11.5-14.5) Platelet Count 226 x10^3/uL (140-400) Neutrophils (%) (Auto) 62 % (31-73) Lymphocytes (%) (Auto) 26 % (24-48) Monocytes (%) (Auto) 9 % (0-9) Eosinophils (%) (Auto) 2 % (0-3) Basophils (%) (Auto) 1 % (0-3) Neutrophils # (Auto) 5.1 x10^3uL (1.8-7.7) Lymphocytes # (Auto) 2.2 x10^3/uL (1.0-4.8) Monocytes # (Auto) 0.7 x10^3/uL (0.0-1.1) Eosinophils # (Auto) 0.1 x10^3/uL (0.0-0.7) Basophils # (Auto) 0.1 x10^3/uL (0.0-0.2) Prothrombin Time 12.4 SEC (11.7-14.0) Prothromb Time International Ratio 1.0 (0.8-1.1) D-Dimer (Flaquita) 1.01 ug/mlFEU (0.00-0.50) Sodium Level 131 mmol/L (136-145) 142 mmol/L (136-145) Potassium Level 3.9 mmol/L (3.5-5.1) 3.6 mmol/L (3.5-5.1) Chloride Level 101 mmol/L (98-107) 104 mmol/L (98-107) Carbon Dioxide Level 25 mmol/L (21-32) 29 mmol/L (21-32) Anion Gap 5 (6-14) 9 (6-14) Blood Urea Nitrogen 23 mg/dL (7-20) 15 mg/dL (7-20) Creatinine 1.0 mg/dL (0.6-1.0) 0.8 mg/dL (0.6-1.0) Estimated GFR (Cockcroft-Gault) 67.1 86.8 Glucose Level 160 mg/dL (70-99) 141 mg/dL (70-99) Calcium Level 9.1 mg/dL (8.5-10.1) 8.7 mg/dL (8.5-10.1) Troponin I Quantitative < 0.017 ng/mL (0.000-0.055) 0.030 ng/mL (0.000-0.055) 0.026 ng/mL (0.000-0.055) ZW-Dcr-I-Type Natriuretic Peptide 84 pg/mL (0-124) Hemoglobin A1c 6.2 % (4.8-5.6) Creatine Kinase 128 U/L (26-192) Triglycerides Level 161 mg/dL (0-150) Cholesterol Level 245 mg/dL (0-200) LDL Cholesterol, Calculated 164 mg/dL (0-100) VLDL Cholesterol, Calculated 32 mg/dL (0-40) Non-HDL Cholesterol Calculated 196 mg/dL (0-129) HDL Cholesterol 49 mg/dL (40-60) Cholesterol/HDL Ratio 5.0 BUN/Creatinine Ratio 19 (6-20) Total Bilirubin 0.2 mg/dL (0.2-1.0) Aspartate Amino Transf (AST/SGOT) 22 U/L (15-37) Alanine Aminotransferase (ALT/SGPT) 33 U/L (14-59) Alkaline Phosphatase 108 U/L (46-116) Total Protein 6.7 g/dL (6.4-8.2) Albumin 3.1 g/dL (3.4-5.0) Albumin/Globulin Ratio 0.9 (1.0-1.7) Laboratory Tests Test 05/24/18 04:30 Sodium Level 142 mmol/L (136-145) Potassium Level 3.6 mmol/L (3.5-5.1) Chloride Level 104 mmol/L (98-107) Carbon Dioxide Level 29 mmol/L (21-32) Anion Gap 9 (6-14) Blood Urea Nitrogen 15 mg/dL (7-20) Creatinine 0.8 mg/dL (0.6-1.0) Estimated GFR (Cockcroft-Gault) 86.8 BUN/Creatinine Ratio 19 (6-20) Glucose Level 141 mg/dL (70-99) Calcium Level 8.7 mg/dL (8.5-10.1) Total Bilirubin 0.2 mg/dL (0.2-1.0) Aspartate Amino Transf (AST/SGOT) 22 U/L (15-37) Alanine Aminotransferase (ALT/SGPT) 33 U/L (14-59) Alkaline Phosphatase 108 U/L (46-116) Total Protein 6.7 g/dL (6.4-8.2) Albumin 3.1 g/dL (3.4-5.0) Albumin/Globulin Ratio 0.9 (1.0-1.7) Medications Current Medications Aspirin (Nara Aspirin) 325 mg 1X ONCE PO Last administered on 05/22/18 18:17 ; Start 05/22/18 at 18:00; Stop 05/22/18 at 18:01; Status DC Nitroglycerin (Nitrostat) 0.4 mg PRN Q5MIN PRN SL CHEST PAIN Last administered on 05/22/18at 18:18; Start 05/22/18 at 18:00; Stop 05/23/18 at 17:05; Status DC Morphine Sulfate (Morphine Sulfate) 10 mg 1X ONCE SQ Last administered on 05/22at 18:20; Start 05/22/18 at 18:00; Stop 05/22/18 at 18:01; Status DC Iohexol (Omnipaque 300 Mg/ml) 100 ml 1X ONCE IV Last administered on at 19:45; Start 05/22/18 at 19:30; Stop 05/22/18 at 19:31; Status DC Info (CONTRAST GIVEN -- Rx MONITORING) 1 each PRN DAILY PRN MC SEE COMMENTS; Start 05/22/18 at 19:30; Stop 05/23/18 at 13:09; Status DC Amitriptyline HCl (Elavil) 10 mg QHS PO Last administered on 05/23/18at 21:03; Start 05/22/18 at 22:00 Amlodipine Besylate (Norvasc) 5 mg DAILY PO Last administered on 05/24/18at 09: 02; Start 05/23/18 at 09:00 Aspirin (Nara Aspirin) 325 mg DAILY PO Last administered on 05/24/18at 09:03; Start 05/23/18 at 09:00 Sucralfate (Carafate) 1 gm QIDACHS PO Last administered on 05/24/18at 07:43; Start 05/23/18 at 07:30 Levothyroxine Sodium (Synthroid) 137 mcg DAILY07 PO Last administered on at 06:36; Start 05/23/18 at 07:00 Polyethylene Glycol (miraLAX PACKET) 17 gm DAILY PO Last administered on 09:02; Start 05/23/18 at 09:00 Multivitamins (Thera M Plus) 1 tab DAILY PO Last administered on 05/24/18 09: 02; Start 05/23/18 at 09:00 Oxycodone/ Acetaminophen (Percocet 10/325) 1 tab PRN QID PRN PO SEVERE PAIN Last administered on 05/23/18 09:54; Start 05/22/18 at 20:00 Clopidogrel Bisulfate (Plavix) 75 mg DAILY PO Last administered on 05/24/18 09 :09; Start 05/23/18 at 09:00 Potassium Chloride (Klor-Con) 20 meq BID PO Last administered on 05/24/18 09: 03; Start 05/22/18 at 22:00 Senna/Docusate Sodium (Senna Plus) 2 tab QHS PO Last administered on 05/23/18 21:02; Start 05/22/18 at 22:00 Tizanidine HCl (Zanaflex) 2 mg PRN Q8HRS PRN PO MUSCLE SPASMS Last administered on 05/22/18 22:05; Start 05/22/18 at 20:00 Topiramate (Topamax) 100 mg BID PO Last administered on 05/24/18 09:06; Start 05/22/18 at 22:00 Triamterene/HCTZ (Maxzide 37.5/ 25mg) 1 tab DAILY PO Last administered on 09:02; Start 05/23/18 at 09:00 Vitamin D (Vitamin D3) 1,000 unit DAILY PO Last administered on 05/24/18 09:02 ; Start 05/23/18 at 09:00 Acetaminophen (Tylenol) 650 mg PRN Q6HRS PRN PO MILD PAIN / TEMP; Start at 20:00 Cetirizine HCl (ZyrTEC) 10 mg DAILY PO Last administered on 05/24/18 09:02; Start 05/23/18 at 09:00 Morphine Sulfate (Morphine Sulfate) 2 mg PRN Q4HRS PRN IV PAIN Last administered on 05/24/18 06:30; Start 05/22/18 at 22:45 Morphine Sulfate (Morphine Sulfate) 1 mg PRN Q4HRS PRN IV PAIN; Start 05/22/18 at 22:45 Influenza Virus Vaccine (Afluria Trivalent [id number] Syringe) 0.5 ml ONCE ONCE VAX IM Last administered on 05/23/18at 09:00; Start 05/23/18 at 09:00; Stop at 09:01; Status DC Info (FLU VACCINE SCREEN per RX) 1 each PRN 1X PRN MC SEE COMMENTS; Start 05/23 at 01:00; Status Cancel Iohexol (Omnipaque 300 Mg/ml) 100 ml STK-MED ONCE .ROUTE ; Start 05/23/18 at 11: 29; Stop 05/23/18 at 11:30; Status DC Heparin Sodium/ Sodium Chloride 1,000 ml @ As Directed STK-MED ONCE .ROUTE ; Start 05/23/18 at 11:29; Stop 05/23/18 at 11:30; Status DC Lidocaine HCl (Xylocaine 1% Pf 30ml Vial) 30 ml STK-MED ONCE .ROUTE ; Start at 12:41; Stop 05/23/18 at 12:42; Status DC Morphine Sulfate (Morphine Sulfate) 10 mg STK-MED ONCE .ROUTE ; Start 05/23/18 at 12:45; Stop 05/23/18 at 12:46; Status DC Midazolam HCl (Versed) 5 mg STK-MED ONCE .ROUTE ; Start 05/23/18 at 12:45; Stop 05/23/18 at 12:46; Status DC Iohexol (Omnipaque 300 Mg/ml) 100 ml 1X ONCE IART Last administered on at 13:43; Start 05/23/18 at 13:00; Stop 05/23/18 at 13:12; Status DC Lidocaine HCl (Xylocaine 1% Pf 30ml Vial) 30 ml 1X ONCE INJ Last administered on 05/23/18at 13:43; Start 05/23/18 at 13:00; Stop 05/23/18 at 13:12; Status DC Morphine Sulfate (Morphine Sulfate) 10 mg 1X ONCE IV Last administered on 05/23at 13:44; Start 05/23/18 at 13:00; Stop 05/23/18 at 13:12; Status DC Heparin Sodium/ Sodium Chloride 500 ml @ As Directed STK-MED ONCE .ROUTE ; Start 05/23/18 at 13:08; Stop 05/23/18 at 13:09; Status DC Heparin Sodium/ Sodium Chloride 500 ml @ As Directed STK-MED ONCE .ROUTE ; Start 05/23/18 at 13:08; Stop 05/23/18 at 13:09; Status DC Heparin Sodium/ Sodium Chloride (HEPARIN for ARTERIAL LINE FLUSH) 1,000 unit 1X ONCE IART Last administered on 05/23/18at 13:45; Start 05/23/18 at 13:45; Stop 05/23/18 at 13:58; Status DC Heparin Sodium/ Sodium Chloride (HEPARIN for ARTERIAL LINE FLUSH) 1,000 unit 1X ONCE IART Last administered on 05/23/18at 13:45; Start 05/23/18 at 13:45; Stop 05/23/18 at 13:58; Status DC Sodium Chloride (Normal Saline Flush) 3 ml QSHIFT PRN IV AFTER MEDS AND BLOOD DRAWS; Start 05/23/18 at 14:00 Sodium Chloride 1,000 ml @ 75 mls/hr [id number] IV Last administered on at 15:59; Start 05/23/18 at 13:46; Stop 05/23/18 at 17:45; Status DC Nitroglycerin (Nitrostat) 0.4 mg PRN Q5MIN PRN SL CHEST PAIN; Start 05/23/18 at 14:00 Active Scripts Active Miralax (Polyethylene Glycol 3350) 17 Gm Powd.pack 17 Gm PO DAILY Vitamin D2 (Ergocalciferol (Vitamin D2)) 50,000 Unit Capsule 50,000 Unit PO FR Amitriptyline Hcl 10 Mg Tablet 10 Mg PO QHS Synthroid (Levothyroxine Sodium) 150 Mcg Tablet 150 Mcg PO DAILY07 Reported Amlodipine Besylate 5 Mg Tablet 5 Mg PO DAILY Tizanidine Hcl 4 Mg Tablet 4 Mg PO Q8HRS PRN Hydrocodone-Apap 10-325 (Hydrocodone Bit/Acetaminophen) 1 Each Tablet 1 Tab PO PRN Q6HRS PRN Potassium Chloride 20 Meq Tablet.er 20 Meq PO DAILY Triamterene-Hctz 37.5-25 Mg Cp (Triamterene/Hydrochlorothiazid) 1 Each Capsule 1 Cap PO DAILY Sucralfate 1 Gm/10 Ml Oral.susp 10 Ml PO QID Take next dose tonight 05/12/2015 before dinner Livalo (Pitavastatin Calcium) 1 Mg Tablet 1 Mg PO 3X/WEEK Clopidogrel (Clopidogrel Bisulfate) 75 Mg Tablet 75 Mg PO DAILY Take next dose tomorrow 05/13/2015 in AM Topamax (Topiramate) 100 Mg Tablet 100 Mg PO BID NITROGLYCERIN SubLingual (Nitroglycerin) 0.4 Mg Tab.subl 0.4 Mg SL PRN Q5MIN PRN 1 tab q5 min up to 3 tabs total for chest pain. Loratadine 10 Mg Tab.rapdis 10 Mg PO PRN DAILY PRN Aspirin 325 Mg Tablet 325 Mg PO DAILY Next dose is due tomorrow 05/13/2015 in the AM Omeprazole 40 Mg Capsule.dr 40 Mg PO DAILY Take next dose tomorrow 05/13/2015 in AM Fabrazyme (Agalsidase Beta) 35 Mg Vial 105 Mg IV EVERY 2 WEEKS Vitals/I & O Vital Sign - Last 24 Hours 05/23/18 05/23/18 05/23/18 05/23/18 11:00 11:02 11:04 13:44 Temp 97.7 97.7 Pulse 65 59 Resp 18 19 B/P (MAP) 135/68 (90) 141/73 Pulse Ox 97 98 O2 Delivery Room Air Room Air Room Air 05/23/18 05/23/18 05/23/18 05/23/18 13:47 14:15 14:30 14:45 Pulse 66 79 76 79 Resp 21 B/P (MAP) 145/79 (101) 130/71 (90) 146/64 (91) 176/156 (163) Pulse Ox 99 O2 Delivery Room Air 05/23/18 05/23/18 05/23/18 05/23/18 15:00 15:15 15:30 16:00 Pulse 79 83 69 74 B/P (MAP) 116/60 (78) 101/62 (75) 112/58 (76) 119/47 (71) 05/23/18 05/23/18 05/23/18 05/23/18 17:00 19:00 20:00 22:53 Temp 98.1 98.1 Pulse 79 76 Resp 18 B/P (MAP) 108/53 (71) 156/82 (106) Pulse Ox 96 O2 Delivery Room Air Room Air Room Air 05/23/18 05/24/18 05/24/18 05/24/18 23:00 06:30 07:00 07:00 Temp 97.9 97.9 97.9 97.9 Pulse 79 73 Resp 16 18 18 B/P (MAP) 146/85 (105) 126/68 (87) Pulse Ox 96 98 O2 Delivery Room Air Room Air Room Air Room Air 05/24/18 05/24/18 08:00 09:02 Pulse 73 B/P (MAP) 126/68 O2 Delivery Room Air Intake and Output 05/23/18 05/23/18 05/24/18 15:00 23:00 07:00 Intake Total 360 ml Balance 360 ml PONCE MAST MD May 24, 2018 10:58
[2018-05-24 11:00] VITALS: BP 146/73
[2018-05-24] MEDS ORDERED: TIZA4TAB PO (11:05)
[2018-05-24] MEDS ORDERED: CHOL10002 PO (11:05)
[2018-05-24] MEDS ORDERED: LEVO137T2 PO (11:05)
[2018-05-24] MEDS ORDERED: ISOS30TA4 PO (11:05)
[2018-05-24] MEDS ORDERED: POTA20TA4 PO (11:05)
--- NOTE | 2018-05-24 11:07 | DISCH ---
DISCHARGE INSTRUCTIONS Condition on Discharge Condition on Discharge: Stable Activity After Discharge Activity Instructions for Disc: Resume previous activity Bathing Instructions: Shower-keep dressing dry Lifting Instructions after Dis: No heavy lifting, Do not lift >10 pounds Exercise Instruction after Dis: Walk 30 min, 3 x per week, Progress as tolerated Driving Instructions after Dis: Do not drive today Weight Bearing Status after Di: No restrictions, Full weight bearing, As tolerated Diet after Discharge Diet after Discharge: Cardiac, No Added Sugar Diet Texture: Regular Liquid Texture: Thin Liquid Contacting the DRKylee after DC Call your doctor for: If your condition worsens Follow-Up Follow up with: dr. mast 05/30/18 Treatment/Equipment after DC Adaptive Equipment Issued: None PONCE MAST MD May 24, 2018 11:07
[2018-05-24 11:15] VITALS: BP 146/73
--- NOTE | 2018-05-24 11:15 | PDOC ---
Provider Note Provider Note discharge summary dictated # [id number] PONCE MAST MD May 24, 2018 11:15
[2018-05-24] MEDS: oxyCODONE/APAP 10/325 1 TAB TABLET PO PRN (11:16)
[2018-05-24] MEDS ORDERED: ISOSORBIDE MONONITRATE ER 30 MG TAB.ER.24H PO SCH (11:30)
--- NOTE | 2018-05-24 11:45 | DS ---
DATE OF DISCHARGE: 05/24/2018 PROCEDURE: Cardiac catheterization. CONSULTANTS: Dr. Rene and Dr. Zepeda. FINAL DIAGNOSES: 1. Chest pain, most likely secondary to Fabry's disease crisis. 2. Coronary artery disease with previous coronary angioplasty and stent. 3. Udsg-sr-qegtfsed left ventricular hypertrophy. 4. Prediabetes. 5. Peripheral arterial disease. 6. Hypertension. 7. Hyperlipidemia. 8. Fabry's disease with recent crisis. 9. Hypothyroidism. 10. Gastroesophageal reflux disease. 11. Hyponatremia, which resolved. HOSPITAL COURSE: The patient is a 68-year-old -[place] female with history of coronary artery disease with previous coronary angioplasty and stents, peripheral arterial disease with angioplasties and stents, who has hypertension, hyperlipidemia, Fabry's disease, hypothyroidism, gastroesophageal reflux disease, admitted to [facility] with retrosternal chest pressure, which lasted all day. She was given a sublingual nitroglycerin in the Emergency Room, which did not help and the chest pressure eventually resolved last night. Troponin levels were negative x 3. She had some shortness of breath associated with chest pressure. The patient had an echocardiogram, which showed [id number] left ventricular hypertrophy with normal left ventricular function and ejection fraction greater than 55%. Because of the chest pain feeling like her previous myocardial infarction, she underwent a cardiac catheterization and that showed that her left anterior descending coronary artery stent was widely patent. She had [id number] disease in the circumflex coronary artery. She had a very tiny right coronary artery as she had before with a mid-occlusion, which was not amenable to angioplasty because it was such a small size, she has had this before. She had a small vessel before, which had disease in it. I spoke with Dr. Rene yesterday evening and he said that the chest pain most likely was not from her heart, was not from coronary artery disease or from angina. Most likely, this was from Fabry's disease. The patient was started on Imdur 30 mg every day. Her LDL cholesterol was 164, HDL cholesterol 49. SHE CANNOT TOLERATE LIVALO MORE THAN 1 MG 3 TIMES A WEEK. SHE CANNOT TOLERATE OTHER STATINS DUE TO MYALGIAS. She also had problems with elevated liver function tests from previous statins in the past also and has tried numerous statins. So, she will be evaluated for Repatha as an outpatient. Her hemoglobin was normal, so her ferrous sulfate was discontinued. Serum sodium improved from 132 to normal. She will be dismissed to home today and has an appointment to see Dr. Collins in the office on 05/30/2018 and to follow up with the watch assembler a couple of weeks. She will be dismissed on amitriptyline 10 mg at bedtime; amlodipine 5 mg every day; aspirin 325 mg every day; Carafate liquid 1 gram before meals t.i.d. and at bedtime; also levothyroxine 137.5 mcg daily; Livalo 1 mg Mondays, Wednesdays, and Fridays; Claritin 10 mg every day p.r.n.; MiraLax 17 grams every day; multiple vitamin every day; Percocet 10/325 one tablet q.i.d. p.r.n. for pain related to her Fabry's crisis; Plavix 75 mg every day; potassium chloride 20 mEq b.i.d.; Senokot-S 2 tablets at bedtime; tizanidine 2 mg every 8 hours p.r.n.; Topamax 100 mg b.i.d.; Dyazide 37.5/25 mg 1 every day; Ventolin inhaler every 4 hours p.r.n.; vitamin D 1000 units every day; and she was started on Imdur extended release 30 mg every day. She will have an outpatient Fabrazyme therapy either today or tomorrow for her Fabry's disease. She also has prediabetes with a hemoglobin A1c of 6.2. She had a fasting blood sugar at 141 this morning and so she will be on a diabetic diet in addition to a cardiac diet, avoiding sugar and refined carbohydrates. Thank you very much. PONCE COLLINS MD DR: DANA/mo JOB#: [id number] / [id number]
--- NOTE | 2018-05-24 12:37 | PDOC ---
CARDIO Progress Notes Date and Time Date of Service 05/24/2018 Time of Evaluation 1210 Subjective Subjective: No Chest Pain, No shortness of breath, No Palpitations, Other ( doing well, geting ready to go home and have an outpt treatment for her Fabry) Vitals Vitals Vital Signs Date Time Temp Pulse Resp B/P (MAP) Pulse Ox O2 Delivery O2 Flow Rate FiO2 05/24/18 11:16 18 Room Air 05/24/18 11:15 66 146/73 05/24/18 11:00 99.1 98 99.1 Weight Weight [ ] Input and Output Intake and Output Intake and Output 05/24/18 07:00 Intake Total 360 ml Balance 360 ml Intake Oral 360 ml # Voids 4 Laboratory Labs Laboratory Tests Test 05/24/18 04:30 Sodium Level 142 mmol/L (136-145) Potassium Level 3.6 mmol/L (3.5-5.1) Chloride Level 104 mmol/L (98-107) Carbon Dioxide Level 29 mmol/L (21-32) Anion Gap 9 (6-14) Blood Urea Nitrogen 15 mg/dL (7-20) Creatinine 0.8 mg/dL (0.6-1.0) Estimated GFR (Cockcroft-Gault) 86.8 BUN/Creatinine Ratio 19 (6-20) Glucose Level 141 mg/dL (70-99) Calcium Level 8.7 mg/dL (8.5-10.1) Total Bilirubin 0.2 mg/dL (0.2-1.0) Aspartate Amino Transf (AST/SGOT) 22 U/L (15-37) Alanine Aminotransferase (ALT/SGPT) 33 U/L (14-59) Alkaline Phosphatase 108 U/L (46-116) Total Protein 6.7 g/dL (6.4-8.2) Albumin 3.1 g/dL (3.4-5.0) Albumin/Globulin Ratio 0.9 (1.0-1.7) Physical Exam HEENT: Neck Supple W Full Motion Chest: Symmetric LUNGS: Clear to Auscultation Heart: S1S2, RRR Abdomen: Soft N/T Extremities: No Edema, No Calf Tenderness Neurology: alert, oriented, follow commands Other Exams right groin arteriotomy site, intact, soft, no swelling or hematoma, neurovascualr status to bilateral LE intact. Assessment Assessment 1. Chest pain: likely from combination of diffuse distal coronary disease and fabry. TTE with nml EF and WM. 2. CAD: S/P LHC noted with patent LAD/Diagonal stents with diffused distal disease. Nonobstructive RCA/LCx lesions. 3. HLP: LDL 164 on home livalo TIW (this is the only statin she could tolerate) 4. HTN: controlled 5. Fabry disease Recommendations 1. Continue secondary prevention. Agree with addition of imdur as long BP tolerates.in addition to norvasc. 2. Noted allergy to ACEi/BB. Unable to tolerate livalo increase due to myopathy , PCSK9 inhibitor has been arranged as an outpt. 3. Follow up in office as scheduled. GENE NAJERA APRN May 24, 2018 12:37
== END 2018-05-24 13:00 | disposition home or self-care (01) | DRG 287 ==
LOC: ER 17:06 → 5 NORTH 20:30
PROVIDERS: ADMIT Internal Medicine; ATTEND Internal Medicine
PROC: 4A023N7 Measurement of Cardiac Sampling and Pressure, Left Heart, Percutaneous Approach (ICD-10-PCS; principal; 2018-05-23)
PROC: B2151ZZ Fluoroscopy of Left Heart using Low Osmolar Contrast (ICD-10-PCS; 2018-05-23)
PROC: B2111ZZ Fluoroscopy of Multiple Coronary Arteries using Low Osmolar Contrast (ICD-10-PCS; 2018-05-23)
DX: R07.89 Other chest pain (principal); E87.1 Hypo-osmolality and hyponatremia; E75.21 Fabry (-Anderson) disease; F32.9 Major depressive disorder, single episode, unspecified; F41.9 Anxiety disorder, unspecified; I73.9 Peripheral vascular disease, unspecified; I11.9 Hypertensive heart disease without heart failure; R73.03 Prediabetes; I25.10 Atherosclerotic heart disease of native coronary artery without angina pectoris; K21.9 Gastro-esophageal reflux disease without esophagitis; E03.9 Hypothyroidism, unspecified; I25.2 Old myocardial infarction; Z88.0 Allergy status to penicillin; Z88.8 Allergy status to other drugs, medicaments and biological substances; Z79.82 Long term (current) use of aspirin; Z87.11 Personal history of peptic ulcer disease; Z90.710 Acquired absence of both cervix and uterus; Z95.5 Presence of coronary angioplasty implant and graft; Z90.79 Acquired absence of other genital organ(s); Z90.721 Acquired absence of ovaries, unilateral; Z79.890 Hormone replacement therapy; Z86.79 Personal history of other diseases of the circulatory system; Z82.49 Family history of ischemic heart disease and other diseases of the circulatory system
CPT/HCPCS: 36415; 71045; 71275; 80048; 80053; 80061; 82550; 83036; 83880; 84484; 85025; 85379; 85610; 90471; 90756; 93005; 93306; 93458; 96372; C1769; C1771; C1892; G0269; J1644; J2270; J7030; Q9967; 99285-25; Q2035

== ENCOUNTER 2018-08-01 15:38 | Emergency (ER) | payer MEDICARE ==
[~2018-08-01] VITALS: Ht 167.6 cm; Wt 96.6 kg
[~2018-08-01 15:38] MED LIST changes: +CHOL10002 PO; +EVOL420W SQ; -HYDR-2762 PO; +HYDR-2765 PO; -HYDR-2766 PO; +HYDR-2769 PO; +LEVO137T2 PO; -OXYC10TA45 PO; +OXYC10TA46 PO; +OXYC5TAB4 PO; -OXYC5TAB95 PO; +POTA20TA4 PO
[2018-08-01 15:50] VITALS: BP 156/67
[2018-08-01] MEDS: KETOROLAC 60 MG/2 ML INJ. IM ONE (16:09)
[2018-08-01] MEDS ORDERED: PRED50TA PO (16:09)
[2018-08-01] MEDS ORDERED: CYCL10TA2 PO (16:09)
[2018-08-01] MEDS: MORPHINE SULFATE 10 MG/ML VIAL. SQ ONE (16:10)
--- NOTE | 2018-08-01 16:10 | PHYS DOC ---
Past Medical History Past Medical History: CAD, High Cholesterol, Hypertension, Other Additional Past Medical Histor: fabry's disease Past Surgical History: Angioplasty, Appendectomy, Cholecystectomy, Colectomy, Hysterectomy Additional Past Surgical Histo: stent placement x3, bowel resection Alcohol Use: Rarely Drug Use: None Adult General Chief Complaint Chief Complaint: BACK PAIN - NO INJURY [facility] HPI Patient is a 68 year old female who presents with chronic nerve pain that again started up today she has low back pain that radiates across her lower back down her right leg and also up her back to her right shoulder and down her right arm. Patient states is sharp shooting. He states it comes and goes. Patient states that due to took 800 mg ibuprofen and oxycodone 10 mg at 9:00 this morning. She states she's also tried ice and heat. She states when she has this nerve pain she usually gets morphine and a Toradol shot but she is out of the muscle relaxer. She is alert and oriented. She denies any numbness or tingling or chest pain or shortness of air or headaches. She denies any weaknesses. She takes in full clear sentences. Review of Systems Review of Systems Constitutional: Denies fever or chills [] Eyes: Denies change in visual acuity, redness, or eye pain [] HENT: Denies nasal congestion or sore throat [] Respiratory: Denies cough or shortness of breath [] Cardiovascular: No additional information not addressed in HPI [] GI: Denies abdominal pain, nausea, vomiting, bloody stools or diarrhea [] : Denies dysuria or hematuria [] Musculoskeletal: Bilateral back pain that radiates down her right leg and upright back to shoulder down right arm or joint pain [] Integument: Denies rash or skin lesions [] Neurologic: Denies headache, focal weakness or sensory changes [] Endocrine: Denies polyuria or polydipsia [] All other systems were reviewed and found to be within normal limits, except as documented in this note. Current Medications Current Medications Current Medications Medications (Trade) Dose Ordered Sig/Priya Start Time Stop Time Status Last Admin Dose Admin Ketorolac Tromethamine (Toradol Im) 60 mg 1X ONCE 08/01/18 16:00 08/01/18 16:01 DC 08/01/18 16:09 60 MG Morphine Sulfate (Morphine Sulfate) 10 mg 1X ONCE 08/01/18 16:00 08/01/18 16:01 DC 08/01/18 16:10 10 MG Allergies Allergies Allergies Coded Allergies Type Severity Reaction Last Updated Verified Penicillins Allergy Intermediate Hives 07/18/18 Yes enalapril Allergy Intermediate cough 07/18/18 Yes fentanyl Allergy Intermediate headaches 07/18/18 Yes lisinopril Allergy Intermediate 07/18/18 Yes pravastatin Allergy Intermediate 07/18/18 Yes ubidecarenone Allergy Intermediate Itching 07/18/18 Yes NUBIA Inhibitors Adverse Reaction Intermediate cough and migraine 07/18/18 Yes Akdoegm-Ana-Jcb Reductase Inhibitor Adverse Reaction Intermediate Liver enzymes elevated 07/18/18 Yes clindamycin Adverse Reaction Intermediate c-Diff Diarrhea 07/18/18 Yes diazepam Adverse Reaction Intermediate AMS 07/18/18 Yes duloxetine Adverse Reaction Intermediate Tremors 07/18/18 Yes ezetimibe Adverse Reaction Intermediate Nausea and Vomiting 07/18/18 Yes propranolol Adverse Reaction Intermediate Headaches 07/18/18 Yes Physical Exam Physical Exam Constitutional: Well developed, well nourished, no acute distress, non-toxic appearance. [] HENT: Normocephalic, atraumatic, bilateral external ears normal, oropharynx moist, no oral exudates, nose normal. [] Eyes: PERRLA, EOMI, conjunctiva normal, no discharge. [] Neck: Normal range of motion, no tenderness, supple, no stridor. [] Cardiovascular:Heart rate regular rhythm, no murmur [] Lungs & Thorax: Bilateral breath sounds clear to auscultation [] Abdomen: Bowel sounds normal, soft, no tenderness, no masses, no pulsatile masses. [] Skin: Warm, dry, no erythema, no rash. [] Back: No tenderness, no CVA tenderness. [] Extremities: No tenderness, no cyanosis, no clubbing, ROM intact, no edema. [] Neurologic: Alert and oriented X 3, normal motor function, normal sensory function, no focal deficits noted. [] Psychologic: Affect normal, judgement normal, mood normal. [] Current Patient Data Vital Signs Vital Signs Date Time Temp Pulse Resp B/P (MAP) Pulse Ox O2 Delivery O2 Flow Rate FiO2 08/01/18 15:50 98.0 69 18 156/67 (96) 97 Room Air 98.0 EKG EKG [] Radiology/Procedures Radiology/Procedures [] Course & Med Decision Making Course & Med Decision Making Patient is a 68 year old female who presents with chronic nerve pain that again started up today she has low back pain that radiates across her lower back down her right leg and also up her back to her right shoulder and down her right arm. Patient states is sharp shooting. He states it comes and goes. Patient states that due to took 800 mg ibuprofen and oxycodone 10 mg at 9:00 this morning. She states she's also tried ice and heat. She states when she has this nerve pain she usually gets morphine and a Toradol shot but she is out of the muscle relaxer. She is alert and oriented. She denies any numbness or tingling or chest pain or shortness of air or headaches. She denies any weaknesses. She takes in full clear sentences. Ambulates with a steady gait. She has no swelling in any of her extremities. I'll signs are within normal limits. Patient denies any nausea, vomiting, diarrhea. She is neurologically intact and has no focal weaknesses. She does not have any tenderness to the affected side. She has strong pedal pulse and radial pulse. Skin is pink warm and dry. no carotid bruit. Heart regular without murmur, lungs are clear to auscultation. 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 Given a IM shot of Toradol, morphine subcutaneous. She will be given a prescription for prednisone and cyclobenzaprine. Headache that probable problem she is having is related to her nerve damage but also sciatica due to her description of symptoms. Dragon Disclaimer Dragon Disclaimer This electronic medical record was generated, in whole or in part, using a voice recognition dictation system. Departure Departure Impression: Primary Impression: Chronic pain Additional Impression: Sciatica Disposition: HOME, SELF-CARE Condition: STABLE Referrals: PONCE MAST MD (PCP) Patient Instructions: Sciatica Additional Instructions: Follow-up with her primary care doctor tomorrow. Take medications as prescribed. Scripts Cyclobenzaprine Hcl (CYCLOBENZAPRINE HCL) 10 Mg Tablet 1 TAB PO TID, #30 TAB Prov: LYNETTE DAVIS UNDERCOATER 08/01/18 Prednisone (PREDNISONE) 50 Mg Tablet 1 TAB PO DAILY, #5 TAB Prov: LYNETTE DAVIS UNDERCOATER 08/01/18 Problem Qualifiers Primary Impression: Chronic pain Chronic pain type: other chronic pain Qualified Codes: G89.29 - Other chronic pain Additional Impression: Sciatica Laterality: right Qualified Codes: M54.31 - Sciatica, right side LYNETTE DAVIS APRN Aug 01, 2018 16:10
== END 2018-08-01 17:04 | disposition home or self-care (01) ==
LOC: ER 15:38
DX: G89.29 Other chronic pain (principal); M54.41 Lumbago with sciatica, right side; E78.00 Pure hypercholesterolemia, unspecified; Z95.5 Presence of coronary angioplasty implant and graft; I10 Essential (primary) hypertension; Z86.73 Personal history of transient ischemic attack (TIA), and cerebral infarction without residual deficits; Z90.89 Acquired absence of other organs; Z90.49 Acquired absence of other specified parts of digestive tract; Z90.710 Acquired absence of both cervix and uterus; Z88.0 Allergy status to penicillin; Z88.4 Allergy status to anesthetic agent; Z88.1 Allergy status to other antibiotic agents; Z88.8 Allergy status to other drugs, medicaments and biological substances; Z91.041 Radiographic dye allergy status
CPT/HCPCS: 96372; 99283; J1885; J2270

== ENCOUNTER 2018-10-18 12:27 | Emergency (ER) | payer MEDICARE ==
[~2018-10-18] VITALS: Ht 167.6 cm; Wt 96.6 kg
[~2018-10-18 12:27] MED LIST changes: +AMLO5TAB10 PO; -AMLO5TAB7 PO; +PRED50TA PO
[2018-10-18 12:48] VITALS: BP 145/70
--- NOTE | 2018-10-18 12:58 | PHYS DOC ---
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 Patient is well known to this ED for this illness. She typically gets outpatient infusions as management of the disease. She states she's not been able to get her treatments due to insurance issues. She typically gets morphine 10 mg SQ as well as Zofran ODT in the Ed. Patient was given pain medicine and Zofran. Follow-up with PCP in the course of this week or next week. Review of Systems Review of Systems Constitutional: Denies fever or chills [] Eyes: Denies change in visual acuity, redness, or eye pain [] HENT: Denies nasal congestion or sore throat [] Respiratory: Denies cough or shortness of breath [] Cardiovascular: No additional information not addressed in HPI [] GI: Denies abdominal pain, nausea, vomiting, bloody stools or diarrhea [] : Denies dysuria or hematuria [] Musculoskeletal: Reports generalized chronic pain Integument: Denies rash or skin lesions [] Neurologic: Denies headache, focal weakness or sensory changes [] All other systems were reviewed and found to be within normal limits, except as documented in this note. Current Medications Current Medications Current Medications Medications (Trade) Dose Ordered Sig/[facility] Start Time Stop Time Status Last Admin Dose Admin Morphine Sulfate (Morphine Sulfate) 10 mg 1X ONCE 10/18/18 13:00 10/18/18 13:01 Ondansetron HCl (Zofran Odt) 4 mg 1X ONCE 10/18/18 13:00 10/18/18 13:01 Allergies Allergies Allergies Coded Allergies Type Severity Reaction Last Updated Verified Penicillins Allergy Intermediate Hives 09/27/18 Yes enalapril Allergy Intermediate cough 09/27/18 Yes fentanyl Allergy Intermediate headaches 09/27/18 Yes lisinopril Allergy Intermediate 09/27/18 Yes pravastatin Allergy Intermediate 09/27/18 Yes ubidecarenone Allergy Intermediate Itching 09/27/18 Yes NUBIA Inhibitors Adverse Reaction Intermediate cough and migraine 09/27/18 Yes Xoojvqu-Dmt-Ble Reductase Inhibitor Adverse Reaction Intermediate Liver enzymes elevated 09/27/18 Yes clindamycin Adverse Reaction Intermediate c-Diff Diarrhea 09/27/18 Yes diazepam Adverse Reaction Intermediate AMS 09/27/18 Yes duloxetine Adverse Reaction Intermediate Tremors 09/27/18 Yes ezetimibe Adverse Reaction Intermediate Nausea and Vomiting 09/27/18 Yes propranolol Adverse Reaction Intermediate Headaches 09/27/18 Yes Physical Exam Physical Exam Constitutional: Well developed, well nourished, no acute distress, non-toxic appearance. [] HENT: Normocephalic, atraumatic, bilateral external ears normal, oropharynx moist, no oral exudates, nose normal. [] Eyes: PERRLA, EOMI, conjunctiva normal, no discharge. [] Neck: Normal range of motion, no tenderness, supple, no stridor. [] Cardiovascular:Heart rate regular rhythm, no murmur [] Lungs & Thorax: Bilateral breath sounds clear to auscultation [] Abdomen: Bowel sounds normal, soft, no tenderness, no masses, no pulsatile masses. [] Skin: Warm, dry, no erythema, no rash. [] Back: No tenderness, no CVA tenderness. [] Extremities: No tenderness, no cyanosis, no clubbing, ROM intact, no edema. [] Neurologic: Alert and oriented X 3, normal motor function, normal sensory function, no focal deficits noted. [] Psychologic: Affect normal, judgement normal, mood normal. [] Current Patient Data Vital Signs Vital Signs Date Time Temp Pulse Resp B/P (MAP) Pulse Ox O2 Delivery O2 Flow Rate FiO2 10/18/18 12:48 98.3 64 18 145/70 (95) 97 Room Air 98.3 EKG EKG [] Radiology/Procedures Radiology/Procedures [] Course & Med Decision Making Course & Med Decision Making Pertinent Labs and Imaging studies reviewed. (See chart for details) See history of present illness Dragon Disclaimer Dragon Disclaimer This electronic medical record was generated, in whole or in part, using a voice recognition dictation system. Departure Departure Impression: Primary Impression: Fabry disease Disposition: 01 HOME, SELF-CARE Condition: STABLE Referrals: PONCE COLLINS MD (PCP) Follow-up next week Patient Instructions: Musculoskeletal Pain Additional Instructions: Please follow up with Dr. Collins next week or this week. JUAN GRULLON APRN Oct 18, 2018 12:58
[2018-10-18] MEDS ORDERED: MORPHINE SULFATE 10 MG/ML VIAL. SQ ONE (13:00)
[2018-10-18] MEDS ORDERED: ONDANSETRON ODT 4 MG TAB.RAPDIS. PO ONE (13:00)
== END 2018-10-18 13:03 | disposition home or self-care (01) ==
LOC: ER 12:27
DX: E75.21 Fabry (-Anderson) disease (principal); I10 Essential (primary) hypertension; I25.10 Atherosclerotic heart disease of native coronary artery without angina pectoris; Z95.1 Presence of aortocoronary bypass graft; Z95.5 Presence of coronary angioplasty implant and graft; Z88.0 Allergy status to penicillin; Z88.4 Allergy status to anesthetic agent; Z88.1 Allergy status to other antibiotic agents; Z88.8 Allergy status to other drugs, medicaments and biological substances; Z88.6 Allergy status to analgesic agent
CPT/HCPCS: 96372; 99283; J2270; Q0162

== ENCOUNTER 2019-01-19 20:13 | Emergency (ER) | payer MEDICARE ==
[~2019-01-19] VITALS: Ht 170.2 cm; Wt 96.6 kg
[2019-01-19 20:20] VITALS: BP 158/74
--- NOTE | 2019-01-19 20:38 | PHYS DOC ---
Past Medical History Past Medical History: CAD, High Cholesterol, Hypertension, Other Additional Past Medical Histor: fabry's disease Past Surgical History: Angioplasty, Appendectomy, Cholecystectomy, Colectomy, Hysterectomy Additional Past Surgical Histo: stent placement x3, bowel resection Alcohol Use: Rarely Drug Use: None Adult General Chief Complaint Chief Complaint: PAIN CONTROL HPI HPI Patient is a 68 year old [f__sex] who presents with [] Review of Systems Review of Systems Constitutional: Denies fever or chills [] Eyes: Denies change in visual acuity, redness, or eye pain [] HENT: Denies nasal congestion or sore throat [] Respiratory: Denies cough or shortness of breath [] Cardiovascular: No additional information not addressed in HPI [] GI: Denies abdominal pain, nausea, vomiting, bloody stools or diarrhea [] : Denies dysuria or hematuria [] Musculoskeletal: Denies back pain or joint pain [] Integument: Denies rash or skin lesions [] Neurologic: Denies headache, focal weakness or sensory changes [] Endocrine: Denies polyuria or polydipsia [] All other systems were reviewed and found to be within normal limits, except as documented in this note. Current Medications Current Medications Current Medications Medications (Trade) Dose Ordered Sig/Priya Start Time Stop Time Status Last Admin Dose Admin Dexamethasone (Decadron) 10 mg 1X ONCE 01/19/19 21:00 01/19/19 21:01 Ketorolac Tromethamine (Toradol 30mg Vial) 30 mg 1X ONCE 01/19/19 21:00 01/19/19 21:01 Morphine Sulfate (Morphine Sulfate) 10 mg 1X ONCE 01/19/19 21:00 01/19/19 21:01 Allergies Allergies Allergies Coded Allergies Type Severity Reaction Last Updated Verified Penicillins Allergy Intermediate Hives 01/17/19 Yes enalapril Allergy Intermediate cough 01/17/19 Yes fentanyl Allergy Intermediate headaches 01/17/19 Yes lisinopril Allergy Intermediate 01/17/19 Yes pravastatin Allergy Intermediate 01/17/19 Yes ubidecarenone Allergy Intermediate Itching 01/17/19 Yes NUBIA Inhibitors Adverse Reaction Intermediate cough and migraine 01/17/19 Yes Gqsjyfd-Ztg-Jlv Reductase Inhibitor Adverse Reaction Intermediate Liver enzymes elevated 01/17/19 Yes clindamycin Adverse Reaction Intermediate c-Diff Diarrhea 01/17/19 Yes diazepam Adverse Reaction Intermediate AMS 01/17/19 Yes duloxetine Adverse Reaction Intermediate Tremors 01/17/19 Yes ezetimibe Adverse Reaction Intermediate Nausea and Vomiting 01/17/19 Yes propranolol Adverse Reaction Intermediate Headaches 01/17/19 Yes Physical Exam Physical Exam Constitutional: Well developed, well nourished, no acute distress, non-toxic appearance. [] HENT: Normocephalic, atraumatic, bilateral external ears normal, oropharynx moist, no oral exudates, nose normal. [] Eyes: PERRLA, EOMI, conjunctiva normal, no discharge. [] Neck: Normal range of motion, no tenderness, supple, no stridor. [] Cardiovascular:Heart rate regular rhythm, no murmur [] Lungs & Thorax: Bilateral breath sounds clear to auscultation [] Abdomen: Bowel sounds normal, soft, no tenderness, no masses, no pulsatile masses. [] Skin: Warm, dry, no erythema, no rash. [] Back: No tenderness, no CVA tenderness. [] Extremities: No tenderness, no cyanosis, no clubbing, ROM intact, no edema. [] Neurologic: Alert and oriented X 3, normal motor function, normal sensory function, no focal deficits noted. [] Psychologic: Affect normal, judgement normal, mood normal. [] EKG EKG [] Radiology/Procedures Radiology/Procedures [] Course & Med Decision Making Course & Med Decision Making Pertinent Labs and Imaging studies reviewed. (See chart for details) [] Dragon Disclaimer Dragon Disclaimer This electronic medical record was generated, in whole or in part, using a voice recognition dictation system. Departure Departure Impression: Primary Impression: Chronic pain Additional Impression: Fabry disease Disposition: 01 HOME, SELF-CARE Condition: STABLE Referrals: PONCE MAST MD (PCP) Patient Instructions: Chronic Pain Additional Instructions: Please follow closely with your doctor regarding further management of your syndrome and chronic pain. Problem Qualifiers Primary Impression: Chronic pain Chronic pain type: chronic pain syndrome Qualified Codes: G89.4 - Chronic pain syndrome PONCE JUSTICE DO January 19, 2019 20:38
[2019-01-19] MEDS ORDERED: KETOROLAC 30 MG/ML VIAL. IM ONE (21:00)
[2019-01-19] MEDS ORDERED: DEXAMETHASONE 4 MG TABLET PO ONE (21:00)
[2019-01-19] MEDS ORDERED: MORPHINE SULFATE 10 MG/ML VIAL. IM ONE (21:00)
[2019-01-19] MEDS ORDERED: MORPHINE SULFATE 10 MG/ML VIAL. SQ ONE (21:30)
== END 2019-01-19 21:11 | disposition home or self-care (01) ==
LOC: ER 20:13
DX: G89.4 Chronic pain syndrome (principal); E75.21 Fabry (-Anderson) disease; I10 Essential (primary) hypertension; I25.10 Atherosclerotic heart disease of native coronary artery without angina pectoris; Z95.5 Presence of coronary angioplasty implant and graft; Z88.0 Allergy status to penicillin; Z88.4 Allergy status to anesthetic agent; Z88.8 Allergy status to other drugs, medicaments and biological substances
CPT/HCPCS: 96372; 99284; J1885; J2270; J8540

== ENCOUNTER → 2019-07-04 | Outpatient (CLI) | payer MEDICARE ==
[2019-06-20 10:58] VITALS: BP 130/69
[~2019-07-04] MED LIST changes: +OMEP40CA45 PO; -OMEP40CA5 PO; -TIZA4TAB PO; +TIZA4TAB2 PO
--- NOTE | 2019-07-04 15:49 | CARD ---
MR#: [id number] Date of Study: 07/04/2019 Ordering Physician: DANYELL JACOBO, Referring Physician: DANYELL JACOBO, Tech: Melody Forte APPROVED REPORT EXAM: Two-dimensional and M-mode echocardiogram with Doppler and color Doppler. Other Information Quality : AverageHR: 52bpm INDICATION Cardiac Disease: CAD RISK FACTORS Hypertension Hyperlipidemia Previous smoker 2D DIMENSIONS RVDd3.5 (2.9-3.5cm)Left Atrium(2D)4.2 (1.6-4.0cm) IVSd1.1 (0.7-1.1cm)Aortic Root(2D)3.1 (2.0-3.7cm) LVDd4.7 (3.9-5.9cm)LVOT Diameter2.2 (1.8-2.4cm) PWd1.1 (0.7-1.1cm)LVDs3.1 (2.5-4.0cm) FS (%) 34.4 %SV64.4 ml LVEF(%)63.5 (>50%) Aortic Valve AoV Peak Abelino.135.7cm/sAoV VTI28.0cm AO Peak GR.7.4mmHgLVOT Peak Abelino.102.1cm/s LVOT VTI 22.28cmAO Mean GR.4mmHg LEAH (VMAX)2.82tw4NZX (VTI)3.12cm2 Mitral Valve MV E Qszncfri97.8cm/sMV DECEL TEQT151el MV A Ablhungj02.0cm/sMV SPT35pq E/A Ratio1.1MVA (PHT)3.30cm2 TDI E/Lateral E'10.5E/Medial E'14.9 Pulmonary Valve PV Peak Krcqhdbr903.6cm/sPV Peak Grad.4mmHg Tricuspid Valve TR P. Nemwsvrd547yp/sRAP KTBOMEKL9ltIt TR Peak Gr.79vkPkJLNU32puMe Pulmonary Vein S1 Koykzfwj03.4cm/sD2 Awwssfnw49.0cm/s PVa [id number] LEFT VENTRICLE The left ventricle is normal size. There is moderate concentric left ventricular hypertrophy. The lef t ventricular systolic function is normal and the ejection fraction is within normal range. The Eject ion Fraction is 55-60%. There is normal LV segmental wall motion. Transmitral Doppler flow pattern is Grade I-abnormal relaxation pattern. RIGHT VENTRICLE The right ventricle is normal size. There is normal right ventricular wall thickness. The right ventr icular systolic function is normal. ATRIA The left atrium is mildly dilated. The right atrium size is normal. The interatrial septum is intact with no evidence for an atrial septal defect or patent foramen ovale as noted on 2-D or Doppler imagi ng. AORTIC VALVE The aortic valve is normal in structure and function. Doppler and Color Flow revealed no significant aortic regurgitation. There is no significant aortic valvular stenosis. MITRAL VALVE The mitral valve is thickened but opens well. There is no evidence of mitral valve prolapse. There is no mitral valve stenosis. Doppler and Color-flow revealed trace mitral regurgitation. TRICUSPID VALVE The tricuspid valve is normal in structure and function. Doppler and Color Flow revealed mild tricusp id regurgitation with an estimated PAP of 34 mmHg. There is no tricuspid valve prolapse or vegetation . There is no tricuspid valve stenosis. PULMONIC VALVE The pulmonary valve is normal in structure and function. Doppler and Color Flow revealed no pulmonic valvular regurgitation. There is no pulmonic valvular stenosis. GREAT VESSELS The aortic root is normal in size. The IVC is normal in size and collapses >50% with inspiration. PERICARDIAL EFFUSION There is no evidence of significant pericardial effusion. Critical Notification Critical Value: No <Conclusion> The left ventricular systolic function is normal and the ejection fraction is within normal range. Th e Ejection Fraction is 55-60%. There is normal LV segmental wall motion. There is moderate concentric left ventricular hypertrophy. Doppler and Color Flow revealed mild tricuspid regurgitation with an estimated PAP of 34 mmHg. Signed by : Eliu Drake, Electronically Approved : 07/04/2019 15:48:18
== END | disposition home or self-care (01) ==
LOC: ECHO 10:45
PROVIDERS: ATTEND Internal Medicine Cardiovascular Disease
DX: I08.1 Rheumatic disorders of both mitral and tricuspid valves (principal); I25.10 Atherosclerotic heart disease of native coronary artery without angina pectoris; I11.0 Hypertensive heart disease with heart failure; I50.9 Heart failure, unspecified; E78.5 Hyperlipidemia, unspecified; Z87.891 Personal history of nicotine dependence
CPT/HCPCS: 93306

== ENCOUNTER 2019-09-21 16:23 | Emergency (ER) | payer MEDICARE ==
[~2019-09-21] VITALS: Ht 167.6 cm; Wt 95.0 kg
[~2019-09-21 16:23] MED LIST changes: -EVOL420W SQ; +EVOL420W2 SQ; -POTA20TA82 PO; -SUCR1ORA11 PO; +SUCR1ORA14 PO
[2019-09-21 16:25] VITALS: BP 160/85
--- NOTE | 2019-09-21 16:56 | PHYS DOC ---
Past Medical History Past Medical History: CAD, High Cholesterol, Hypertension, Other Additional Past Medical Histor: fabry's disease Past Surgical History: Angioplasty, Appendectomy, Cholecystectomy, Colectomy, Hysterectomy Additional Past Surgical Histo: stent placement x3, bowel resection Alcohol Use: Rarely Drug Use: None Social History Narrative: PT TAKES NORCO FOR CHRONIC PAIN Adult General Chief Complaint Chief Complaint: PAIN CONTROL HPI HPI Patient is a 69 year old female who presents with Fabry disease crisis. Patient is here for pain control. She states that the cold air or extreme heat or even stress can cause her to go into crises. She states she starts getting burning and sharp pains in her hands and in her legs bilaterally. She states that that happens when she starts having a crisis. She states that she did take a Percocet this morning at 11:00 but she states it helps her go to sleep and takes the pain away but then the minute it wears off the pain is back. She states that she does see Dr. Collins. She states she just saw Dr. Collins earlier this week she was not currently in a crises. She states she does do many outpatient injections for the disease. States whenever she is in a crises that states to coming to the emergency room. She states usually gets morphine 10 mg IM, Decadron 10 mg, Zofran ODT, Toradol 60 mg IM. It has been verified several times by Dr. Pérez and Dr. Medina in the past that this is the care plan by Dr. Collins. She currently rates her pain a 9 out of 10. Review of Systems Review of Systems Musculoskeletal: Bilateral hand and lower leg pain. Denies back pain or joint pain [] All other systems were reviewed and found to be within normal limits, except as documented in this note. Allergies Allergies Allergies Coded Allergies Type Severity Reaction Last Updated Verified Penicillins Allergy Intermediate Hives 09/12/19 Yes enalapril Allergy Intermediate cough 09/12/19 Yes fentanyl Allergy Intermediate headaches 09/12/19 Yes lisinopril Allergy Intermediate 09/12/19 Yes pravastatin Allergy Intermediate 09/12/19 Yes ubidecarenone Allergy Intermediate Itching 09/12/19 Yes NUBIA Inhibitors Adverse Reaction Intermediate cough and migraine 09/12/19 Yes Xjbdprn-Aye-Ejy Reductase Inhibitor Adverse Reaction Intermediate Liver enzymes elevated 09/12/19 Yes clindamycin Adverse Reaction Intermediate c-Diff Diarrhea 09/12/19 Yes diazepam Adverse Reaction Intermediate AMS 09/12/19 Yes duloxetine Adverse Reaction Intermediate Tremors 09/12/19 Yes ezetimibe Adverse Reaction Intermediate Nausea and Vomiting 09/12/19 Yes propranolol Adverse Reaction Intermediate Headaches 09/12/19 Yes Physical Exam Physical Exam Constitutional: Well developed, well nourished, no acute distress, non-toxic appearance. [] HENT: Normocephalic, atraumatic, bilateral external ears normal, oropharynx moist, no oral exudates, nose normal. [] Eyes: PERRLA, EOMI, conjunctiva normal, no discharge. [] Neck: Normal range of motion, no tenderness, supple, no stridor. [] Cardiovascular:Heart rate regular rhythm, no murmur [] Lungs & Thorax: Bilateral breath sounds clear to auscultation [] Abdomen: Bowel sounds normal, soft, no tenderness, no masses, no pulsatile masses. [] Skin: Warm, dry, no erythema, no rash. [] Back: No tenderness, no CVA tenderness. [] Extremities: No tenderness, no cyanosis, no clubbing, ROM intact, no edema. [] Neurologic: Alert and oriented X 3, normal motor function, normal sensory function, no focal deficits noted. [] Psychologic: Affect normal, judgement normal, mood normal. Normal Physical Exam [] Current Patient Data Vital Signs Vital Signs Date Time Temp Pulse Resp B/P (MAP) Pulse Ox O2 Delivery O2 Flow Rate FiO2 09/21/19 16:25 97.7 77 16 160/85 (110) 97 97.7 EKG EKG [] Radiology/Procedures Radiology/Procedures [] Course & Med Decision Making Course & Med Decision Making Patient denies abdominal pain nausea, vomiting, fever, diarrhea, chest pain, shortness of air, dizziness, headache, visual changes, weakness, numbness or tingling. 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 Lungs are clear to auscultation in all lobes. Patient is given morphine, Toradol, Zofran, Decadron. Alert and oriented. Speaks in full clear sentences. Skin pink warm and dry. Vi jaylyn signs within normal limits. Ambulatory with a steady gait. Dragon Disclaimer Dragon Disclaimer This electronic medical record was generated, in whole or in part, using a voice recognition dictation system. Departure Departure Impression: Primary Impression: Chronic pain Additional Impression: Fabry disease Disposition: 01 HOME, SELF-CARE Condition: STABLE Referrals: PONCE COLLINS MD (PCP) Patient Instructions: Chronic Pain Management Additional Instructions: Follow-up with primary care for further management. Take medications as you are prescribed. Problem Qualifiers Primary Impression: Chronic pain Chronic pain type: chronic pain syndrome Qualified Codes: G89.4 - Chronic pain syndrome YLNETTE DAVIS APRN Sep 21, 2019 16:56
[2019-09-21] MEDS ORDERED: MORPHINE SULFATE 10 MG/ML VIAL. IM ONE (17:30)
[2019-09-21] MEDS ORDERED: KETOROLAC 60 MG/2 ML VIAL. IM ONE (17:30)
[2019-09-21] MEDS ORDERED: MORPHINE SULFATE 10 MG/ML VIAL. SQ ONE (17:30)
[2019-09-21] MEDS ORDERED: DEXAMETHASONE 4 MG TABLET PO SCH (17:30)
[2019-09-21] MEDS ORDERED: ONDANSETRON ODT 4 MG TAB.RAPDIS. PO ONE (17:30)
== END 2019-09-21 17:33 | disposition home or self-care (01) ==
LOC: ER 16:23
DX: G89.4 Chronic pain syndrome (principal); E75.21 Fabry (-Anderson) disease; I10 Essential (primary) hypertension; I25.10 Atherosclerotic heart disease of native coronary artery without angina pectoris; Z90.49 Acquired absence of other specified parts of digestive tract; Z90.89 Acquired absence of other organs; Z90.710 Acquired absence of both cervix and uterus; Z95.5 Presence of coronary angioplasty implant and graft; Z88.0 Allergy status to penicillin; Z88.4 Allergy status to anesthetic agent; Z88.1 Allergy status to other antibiotic agents; Z91.041 Radiographic dye allergy status; Z88.8 Allergy status to other drugs, medicaments and biological substances
CPT/HCPCS: 96372; 99284; J1885; J2270; Q0162

== ENCOUNTER → 2020-02-26 | Outpatient (CLI) | payer MEDICARE ==
[2020-02-13 10:45] VITALS: BP 128/69
[~2020-02-26] MED LIST changes: -LEVO137T2 PO; +LEVO137T44 PO; -PREG50CA PO; +PREG50CA91 PO; +REGADENOSON 0.4 MG/5 ML DISP.SYRIN. IV ONE
--- NOTE | 2020-02-26 13:45 | RAD ---
MR#: [id number] Date of Study: 02/26/2020 Ordering Physician: DANYELL JACOBO, Referring Physician: KRISTAL HAGAN Tech: Leslie Ley RT (R) (N) APPROVED REPORT Test Type: Pharmacological Stress Nurse/Tech: Dariel Alvares RN Test Indications: CAD Cardiac History: HTN, PTCA 2009, CAD, See EMR Medications: ASA daily, See EMR Medical History: See EMR Resting ECG: SR Resting Heart Rate: 66 bpm Resting Blood Pressure: 128/71mmHg Pretest Chest Pain: No chest pain Nurse/Tech Notes Lungs CTA, Heart tones regular. Consent: The procedure was explained to the patient in lay terms. Informed consent was witnessed. Franck eout was entered into [employer]. History and Stress Test performed by HILARIO Da Silva, CELSO (R) (N) Pharm. Details Pharmacologic stress testing was performed using 0.4mg per 5ml of regadenoson given intravenously ove r 7-10 seconds. Stress Symptoms No chest pain or symptoms. POST EXERCISE Reason for Termination: Infusion complete Max HR: 84 bpm Max Blood Pressure: 130/58mmHg Blood Pressure response to exercise: Normal blood pressure response during stress. Heart Rate response to exercise: WNL Chest Pain: No. Arrhythmia: Yes. Fequent PVCs ST Change: No. INTERPRETATION Stress EKG Conclusion: Baseline EKG showed sinus rhythm with inferolateral T wave inversions. Non di agnostic changes at peak stress. Few PVC's without any significant arrhythmias. Imaging Protocol IMAGE PROTOCOL: Rest Tc-99m/stress Tc-99m 1 day Rest: Stress: Viability: Radiopharm.Tc99m QwcylskboFn49y Sestamibi Wnrm79tIh 32mCi Duration 15min. 10min. Img Date 02/26/2020 02/26/2020 Inj-Img Uhiq76kvx. 60min. Rest Admin Site:IV - Left ForearmAdministrator:HILARIO Da Silva, CELSO (R)(N) Stress Admin Site: IV - Left ForearmAdministrator: HILARIO Da Silva ARRT (Leilani)(N) STRESS DATA End Diast. Vol.145.0mlAv. Heart Rate68.0bpm End Syst. Vol.47.0mlCO Index BSA0.0L/min Myocardial Dpml379.0gEject. Ynwjkguh35.0% Stress Rates Pk. Fill Rate2.31EDV/secLVtime Pk. Fill 260.11msec Pk. Empty Rate3.42ESV/secLVtime Pk. Xhdno580.92msec 1/3 Pk. Fill0.89EDV/sec Stress Scores Regional WT0.00Summed WT1.00 Regional WM0.00Summed WM2.00 Study quality was good. Left Ventricular size was Normal at Rest and Stress. Lung uptake was . Left Ventricular ejection fraction is 66%. The rest and stress images show normal perfusion, normal contraction and thickening. LV Perf. Quant 17 Seg. SSS1.00 17 Seg. SRS2.00 17 Seg. SDS0.00 Stress Defect Extent (% LAD)0.00Rest Defect Extent (% LAD)0.00Rev. Defect Extent (% LAD)0.00 Stress Defect Extent (% LCX) 0.00Rest Defect Extent (% LCX)23.80Rev. Defect Extent (% LCX)0.00 Stress Defect Extent (% RCA)0.00Rest Defect Extent (% RCA)0.00Rev. Defect Extent (% RCA)0.00 Stress Defect Extent (% WILLIAM)0.00Rest Defect Extent (% WILLIAM)4.10Rev. Defect Extent (% WILLIAM)0.00 Conclusion 1. Regadenoson cardioisotope stress test did not show any evidence of ischemia or infarct. 2. Normal left ventricular systolic function with ejection fraction calculated at 66%. 3. Low risk for cardiac events. Signed by : Danyell Jacobo, Electronically Approved : 02/26/2020 13:45:00
== END | disposition home or self-care (01) ==
LOC: NM 09:45
PROVIDERS: ATTEND Internal Medicine Cardiovascular Disease
DX: I25.10 Atherosclerotic heart disease of native coronary artery without angina pectoris (principal)
CPT/HCPCS: 78452; 93017; A9500; J2785

== ENCOUNTER → 2020-09-03 | Outpatient (CLI) | payer OTHER, MEDICAID ==
[2020-08-20 13:30] VITALS: BP 125/76
[~2020-09-03] MED LIST changes: +AMLO-186 PO; -AMLO5TAB10 PO; +ASPI-630 PO; -ISOS30TA4 PO; +ISOS30TA68 PO; +LORA-169 PO; -LORA10TA55 PO; -OMEP40CA45 PO; +OMEP40CA7 PO; -OXYC-411 PO; +OXYC1TAB20 PO; -REGADENOSON 0.4 MG/5 ML DISP.SYRIN. IV ONE; +RIVA10TA PO
--- NOTE | 2020-09-03 15:12 | RAD ---
MR#: [id number] Date of Study: 09/03/2020 Ordering Physician: DANYELL JACOBO, Referring Physician: DANYELL JACOBO, Tech: Janes Knowles MBA, RDMS, RVT, RDCS, RTR APPROVED REPORT Patient Location: OUT-PATIENT Laterality:Bilateral Indications PVD Doppler Spectral Velocity Analysis Right Left pCCA 66/10 cm/spCCA 131/14 cm/s mCCA 56/10 cm/smCCA 71/12 cm/s dCCA 48/14 cm/sdCCA 54/13 cm/s Bulb 31/9 cm/sBulb 44/13 cm/s ECA 87/ cm/sECA 92/ cm/s pICA 95/30 cm/spICA 74/29 cm/s Vandana 69/22 cm/smICA 100/27 cm/s dICA 58/16 cm/sdICA 77/22 cm/s Vert. 23/ cm/sVert. 55/ cm/s Subcl. 72/ cm/sSubcl. 108/ cm/s ICA/CCA 1.44ICA/CCA 0.76 Findings Grayscale images of the bilateral common carotid, external and internal carotid vessels demonstrates mild diffuse intimal hyperplasia. Based on velocity criteria only there is likely a moderate 50 to 69% stenosis involving the proximal common carotid artery but otherwise no significant carotid occlusive disease noted. Overall 0 to les s than 50% stenosis. Bilateral ICA to CCA ratios are within normal limits. Bilateral vertebral velocities are antegrade a nd within normal limits. Critical Notification Critical Value: No <Conclusion> 1. No significant carotid occlusive disease bilaterally. Signed by : Eliu Drake, Electronically Approved : 09/03/2020 15:12:06
--- NOTE | 2020-09-03 17:32 | CARD ---
MR#: [id number] Date of Study: 09/03/2020 Ordering Physician: DANYELL JACOBO, Referring Physician: DANYELL JACOBO, Tech: Kimberly Mcgowan EULALIO APPROVED REPORT EXAM: Two-dimensional and M-mode echocardiogram with Doppler and color Doppler. Other Information Quality : Good INDICATION Cardiac Disease: CAD 2D DIMENSIONS RVDd2.7 (2.9-3.5cm)Left Atrium(2D)3.8 (1.6-4.0cm) IVSd1.6 (0.7-1.1cm)Aortic Root(2D)3.2 (2.0-3.7cm) LVDd5.2 (3.9-5.9cm)LVOT Diameter2.0 (1.8-2.4cm) PWd1.3 (0.7-1.1cm)LVDs3.1 (2.5-4.0cm) FS (%) 30.0 %SV92.7 ml LVEF(%)60.0 (>50%) Aortic Valve AoV Peak Abelino.200.5cm/sAoV VTI34.0cm AO Peak GR.16.1mmHgLVOT Peak Abelino.121.1cm/s AO Mean GR.6mmHgAVA (VMAX)1.86cm2 LEAH (VTI)2.20cm2 Mitral Valve MV E Kzohdvje09.4cm/sMV DECEL ZMXC311gq MV A Aqbdpimi478.1cm/sE/A Ratio0.9 Tricuspid Valve TR P. Izecdlvi752ba/sRAP QWFJAZZM8dsKa TR Peak Gr.11onGiBLMP96qfQd Pulmonary Vein S1 Clljstze27.3cm/sD2 Ejeiurye76.5cm/s LEFT VENTRICLE The left ventricle is normal size. There is mild to moderate concentric left ventricular hypertrophy. The left ventricular systolic function is normal and the ejection fraction is within normal range. T he Ejection Fraction is 55-60%. There is normal LV segmental wall motion. Transmitral Doppler flow pa ttern is Grade I-abnormal relaxation pattern. RIGHT VENTRICLE The right ventricle is normal size. The right ventricular systolic function is normal. ATRIA The left atrium size is normal. The right atrium size is normal. The interatrial septum is intact wit h no evidence for an atrial septal defect or patent foramen ovale as noted on 2-D or Doppler imaging. AORTIC VALVE The aortic valve is calcified but opens well. Doppler and Color Flow revealed no significant aortic r egurgitation. There is no significant aortic valvular stenosis. MITRAL VALVE The mitral valve is normal in structure and function. Mitral annular calcification is mild. There is no evidence of mitral valve prolapse. There is no mitral valve stenosis. Doppler and Color-flow revea led trace to mild mitral regurgitation. TRICUSPID VALVE The tricuspid valve is normal in structure and function. Doppler and Color Flow revealed mild tricusp id regurgitation. The PA pressure was estimated at 29 mmHg. There is no tricuspid valve stenosis. PULMONIC VALVE The pulmonic valve is not well visualized. Doppler and Color Flow revealed no pulmonic valvular regur gitation. There is no pulmonic valvular stenosis. GREAT VESSELS The aortic root is normal in size. The ascending aorta is mildly dilated at 3.6 cm The IVC is normal in size and collapses >50% with inspiration. PERICARDIAL EFFUSION There is no evidence of significant pericardial effusion. Critical Notification Critical Value: No <Conclusion> The left ventricle is normal size. The left ventricular systolic function is normal and the ejection fraction is within normal range. The Ejection Fraction is 55-60%. There is mild to moderate concentric left ventricular hypertrophy. Doppler and Color Flow revealed no significant aortic regurgitation. There is no significant aortic valvular stenosis. Doppler and Color-flow revealed trace to mild mitral regurgitation. Doppler and Color Flow revealed mild tricuspid regurgitation. The PA pressure was estimated at 29 mmHg. The ascending aorta is mildly dilated at 3.6 cm Signed by : Joseph Dunn MD Electronically Approved : 09/03/2020 17:32:04
== END ==
LOC: ECHO 09:17
PROVIDERS: ATTEND Internal Medicine Cardiovascular Disease
DX: I08.3 Combined rheumatic disorders of mitral, aortic and tricuspid valves (principal); I65.23 Occlusion and stenosis of bilateral carotid arteries; I25.10 Atherosclerotic heart disease of native coronary artery without angina pectoris; I73.9 Peripheral vascular disease, unspecified
CPT/HCPCS: 93306; 93880

== ENCOUNTER → 2020-12-24 | Outpatient (CLI) | payer OTHER, MEDICAID ==
[2020-12-23 14:10] VITALS: BP 165/78
--- NOTE | 2020-12-24 10:44 | RAD ---
EXAM: Pelvis and left hip, 3 views. HISTORY: Pain. COMPARISON: None. FINDINGS: A frontal view the pelvis and frontal and frog-leg views of the left hip are obtained. Ther e is no fracture, the femoral heads are normal in configuration and seated properly. There is degener ative change at the lower lumbar levels. There are suspected calcified uterine fibroids. IMPRESSION: 1. No acute osseous finding. 2. Degenerative change involving the lower lumbar levels. 3. Calcified uterine fibroids. Electronically signed by: Leslie Marie MD (12/24/2020 10:41 AM) [id number]
== END ==
LOC: RAD 10:00
PROVIDERS: ATTEND Internal Medicine
DX: M25.552 Pain in left hip (principal); M47.816 Spondylosis without myelopathy or radiculopathy, lumbar region; D25.9 Leiomyoma of uterus, unspecified
CPT/HCPCS: 73502

== ENCOUNTER → 2021-03-23 | Outpatient (CLI) | payer OTHER, MEDICAID ==
[2021-03-18 10:35] VITALS: BP 147/79
[~2021-03-23] MED LIST changes: +REGADENOSON 0.4 MG/5 ML DISP.SYRIN. IV ONE
--- NOTE | 2021-03-24 12:30 | RAD ---
MR#: [id number] Date of Study: 03/23/2021 Ordering Physician: DANYELL JACOBO, Referring Physician: KRISTAL HAGAN Tech: HILARIO Da Silva, ARRNaseem (R) (N) APPROVED REPORT Test Type: Pharmacological Stress Nurse/Tech: ROLANDO Mayer Test Indications: cad Cardiac History: See Electronic Medical Record Medications: See Electronic Medical Record Medical History: See Electronic Medical Record Resting ECG: SR Resting Heart Rate: 66 bpm Resting Blood Pressure: 131/61mmHg Pretest Chest Pain: None Nurse/Tech Notes SR Pharm. Details Pharmacologic stress testing was performed using 0.4mg per 5ml of regadenoson given intravenously ove r 7-10 seconds. Stress Symptoms No chest pain or symptoms. POST EXERCISE Reason for Termination: Infusion complete Target HR: No Max HR: 88 bpm 68% of Maximum Predicted HR: 129 bpm Exercise duration: 6 min:sec, Stage Max Blood Pressure: 140/61mmHg Blood Pressure response to exercise: Normal blood pressure response during stress. Chest Pain: No. Arrhythmia: No. ST Change: No. INTERPRETATION Stress EKG Conclusion: Baseline EKG showed sinus rhythm with inferolateral T wave inversions. Nondia gnostic changes at peak stress. No arrhythmias. Imaging Protocol IMAGE PROTOCOL: Rest Tc-99m/stress Tc-99m 1 day Rest: Stress: Viability: Radiopharm.Tc99m GkuwpuzdsGc94k Sestamibi Dose10.2mCi 30.0mCi Img Date 03/23/2021 03/23/2021 Inj-Img Fadh17ono. 60min. Rest Admin Site:IV - Left AntecubitalAdministrator:RT Hammad (R)(N) Stress Admin Site: IV - Left AntecubitalAdministrator: HILARIO Da Silva, ARRT (R)(N) STRESS DATA End Diast. Vol.122.0mlLVEDV index BSA60.0ml End Syst. Vol.35.0mlLVESV index BSA17.0ml Myocardial Uwxb175.0gEject. Rntjgihn95.0% Stress Scores Regional WT1.00Summed WT10.00 Regional WM0.00Summed WM1.00 Study quality was good. Left Ventricular size was Normal at Rest and Stress. Lung uptake was . Left Ventricular ejection fraction is 65%. The rest and stress images show normal perfusion, normal contraction and thickening. LV Perf. Quant 17 Seg. SSS8.00 17 Seg. SRS3.00 17 Seg. SDS5.00 Stress Defect Extent (% LAD)2.50Rest Defect Extent (% LAD)5.00Rev. Defect Extent (% LAD)2.50 Stress Defect Extent (% LCX) 16.30Rest Defect Extent (% LCX)0.00Rev. Defect Extent (% LCX)10.00 Stress Defect Extent (% RCA)13.30Rest Defect Extent (% RCA)1.10Rev. Defect Extent (% RCA)11.10 Stress Defect Extent (% WILLIAM)12.40Rest Defect Extent (% WILLIAM)3.00Rev. Defect Extent (% WILLIAM)9.10 Conclusion 1. Regadenoson cardioisotope stress test did not show any evidence of ischemia or infarct. 2. Normal left ventricular systolic function with ejection fraction calculated at 65%. 3. Low risk for cardiac events. Signed by : Danyell Jacobo, Electronically Approved : 03/24/2021 12:29:54
== END ==
LOC: NM 10:02
PROVIDERS: ATTEND Internal Medicine Cardiovascular Disease
DX: I25.10 Atherosclerotic heart disease of native coronary artery without angina pectoris (principal)
CPT/HCPCS: 78452; 93017; A9500; J2785